=== PATIENT | male | born 1935 | race Caucasian/White ===

== ENCOUNTER 2024-03-23 08:11 | Inpatient (IN) ==
--- NOTE | 2024-02-18 11:35 | PAT Medication Instructions ---
Medication Instructions Date of Service February 18, 2024 Home Medications acetaminophen 500 mg tablet 500 mg PO QID PRN Pain amlodipine 2.5 mg tablet 2.5 mg PO QAM apixaban 5 mg tablet (Eliquis) 5 mg PO BID cholecalciferol (vitamin D3) 25 mcg (1,000 unit) chewable tablet (Vitamin D3) 25 mcg PO QAM furosemide 40 mg tablet 40 mg PO QAM ibuprofen 800 mg tablet 800 mg PO Q8H PRN Pain levothyroxine 25 mcg tablet 25 mcg PO QAM levothyroxine 50 mcg capsule 50 mcg PO INGRAM lisinopril 20 mg tablet 20 mg PO QAM metoprolol succinate 50 mg capsule sprinkle, ext. release 24 hr 50 mg PO QAM potassium chloride 10 mEq capsule,extended release 20 meq PO TID simvastatin 10 mg tablet 10 mg PO HS ASK your surgeon for instructions ibuprofen 800 mg tablet 800 mg PO Q8H PRN Pain ASK your prescriber and surgeon apixaban 5 mg tablet (Eliquis) 5 mg PO BID (From anesthesia perspective, Apixaban/Eliquis needs to be stopped 72 hours/3 days before surgery. Please check if okay with doctor that prescribes this to you) DO NOT take the morning of surgery cholecalciferol (vitamin D3) 25 mcg (1,000 unit) chewable tablet (Vitamin D3) 25 mcg PO QAM furosemide 40 mg tablet 40 mg PO QAM lisinopril 20 mg tablet 20 mg PO QAM potassium chloride 10 mEq capsule,extended release 20 meq PO TID Take morning of surgery With a small sip of water, OTHERWISE NOTHING TO EAT OR DRINK AFTER MIDNIGHT: acetaminophen 500 mg tablet 500 mg PO QID PRN Pain (if needed) amlodipine 2.5 mg tablet 2.5 mg PO QAM levothyroxine metoprolol succinate 50 mg capsule sprinkle, ext. release 24 hr 50 mg PO QAM Take evening before surgery acetaminophen 500 mg tablet 500 mg PO QID PRN Pain (if needed) potassium chloride 10 mEq capsule,extended release 20 meq PO TID simvastatin 10 mg tablet 10 mg PO HS Other Notes If you have any questions please call us at [phone] or [phone] or [phone] or [phone]
--- NOTE | 2024-02-23 09:29 | Anesthesiology Consultation ---
Date of Service February 23, 2024 Assessment & Plan (1) Encounter for pre-operative examination: - Infectious disease screening: Per assessment on 02/23/24: No known recent infectious disease contacts or current infectious disease symptoms. - Outpatient joint pathway: Initial OR booking comments noted plan for outpatient joint program. Patient seen at [facility] 02/23/24. Patient states he was told by surgeon's office he would be remaining in hospital for a few days after surgery post-operatively. Patient is not recommended candidate for outpatient joint pathway. Surgeon's office + OR made aware- booking comments updated. - Eliquis instructions: patient made aware that for neuraxial anesthesia, Eliquis needs to be held 72 hours/3 days prior to surgery. Patient voiced understanding/will check if okay with prescriber. - Preop CXR: Performed 02/23/24, notes cardiomegaly with coarsening of the interstitium which may be chronic or represent a component of pulmonary edema + possible small pleural effusions. Note written to cardiology regarding preop CXR > Awaiting cardiology response + upcoming cardiology office visit ([facility] [place] [facility], appt 03/10). Chart Review Chart Review: Patient seen in Pre Admission Testing Teaching & Discussion Pre-Anesthesia Teaching/Discussion Notes: Instructed NPO after midnight before surgery,except medications with 15 cc of water. Medication instructions provided according to the [facility] guidelines. History Surgery Operation Date: 03/23/24 07:00 Proposed Procedures p Left Total Knee Arthroplasty - Aditya Hubbard MD Height/Weight Height: 5 ft 9 in Weight: 116.9 kg Allergies Allergy/AdvReac Type Severity Reaction Status Date / Time No Known Allergies Allergy Verified 02/16/24 08:53 Medications Home Medications Medication Instructions Recorded Confirmed Last Taken acetaminophen 500 mg tablet 500 mg PO QID PRN Pain 02/16/24 02/16/24 Unknown amlodipine 2.5 mg tablet 2.5 mg PO QAM 02/16/24 02/16/24 Unknown apixaban 5 mg tablet (Eliquis) 5 mg PO BID 02/16/24 02/16/24 Unknown cholecalciferol (vitamin D3) 25 25 mcg PO QAM 02/16/24 02/16/24 Unknown mcg (1,000 unit) chewable tablet (Vitamin D3) furosemide 40 mg tablet 40 mg PO QAM 02/16/24 02/16/24 Unknown ibuprofen 800 mg tablet 800 mg PO Q8H PRN Pain 02/16/24 02/16/24 Unknown levothyroxine 25 mcg tablet 25 mcg PO QAM 02/16/24 02/16/24 Unknown levothyroxine 50 mcg capsule 50 mcg PO INGRAM 02/16/24 02/16/24 Unknown lisinopril 20 mg tablet 20 mg PO QAM 02/16/24 02/16/24 Unknown metoprolol succinate 50 mg capsule 50 mg PO QAM 02/16/24 02/16/24 Unknown sprinkle, ext. release 24 hr potassium chloride 10 mEq 20 meq PO TID 02/16/24 02/16/24 Unknown capsule,extended release simvastatin 10 mg tablet 10 mg PO HS 02/16/24 02/16/24 Unknown Past Medical History Medical History DJD (degenerative joint disease) Hard of hearing B/L hearing aids History of atrial flutter Taking Eliquis History of BPH History of diastolic dysfunction Per [facility] cardio records History of vertigo Episode 02/22/24- evaluated at [facility] ER, unremarkable neuro workup, rx Meclizine PRN HTN (hypertension) Hx of osteomyelitis Age 8, right leg- portion of bone removed Hyperlipidemia Hypothyroidism Paroxysmal atrial fibrillation Taking Eliquis Poor historian Exercise / Class Metabolic Activity III < 4 Walking/Shop/Light housework Past Surgical History Surgical History History of bilateral cataract extraction 05/2020 (per [facility] records- not noted by patient) History of prostate surgery TURP (per [facility] records) Hx of colonoscopy Past Anesthesia History No Hx of Anesthesia Complications and No Family Hx of Anesthesia Complications History of PONV No Hx of PONV and No Hx of Motion Sickness Social History Smoking Status: Never smoker Do You Dip or Chew Tobacco: No Hx Alcohol Use: No Hx Substance Use: No substance use type: does not use Review of Systems Patient denies chest pain, shortness of breath, dyspnea on exertion, fever, chills, cough, wheezing, palpitations. Physical Exam Vital Signs BP 134/75 P 84 TEMP 97.8 SP02 97%RA RESP 16 Physical Full cervical extension range of motion. Full TMJ range of motion. TMD 3.5 finger breaths Mallampati Score III Dentition: missing sides/molars Lungs: clear throughout to auscultation Cardiac: regular rate, irregularly irregular rhythm, no murmurs noted Spine: normal Carotid arteries: negative bruit Extremities: no LE edema Lab Results Anesthesia Preop Results Results Anesthesia Widget: PT 12.1 Seconds (9.0-12.0) H 02/23/24 PTT 28 Seconds (21-31) 02/23/24 INR 1.1 (0.9-1.1) 02/23/24 Blood Type A Positive 02/23/24 Antibody Screen NEGATIVE 02/23/24 Testing Laboratory Results 02/22/24 WBC 7.99 H/H 15.4/45. PLATELETS 189 SODIUM 140 POTASSIUM 4.1 CHLORIDE 105 CO2 25 BUN 15 CREATININE 0.8 GLUCOSE 140 02/05/24 HGBA1C 6.2% TSH 2.79 Electrocardiogram Date: 02/22/24 A. fib with PVCs or aberrantly conducted complexes at 86bpm. Possible inferior infarct, age undetermined. Chest X-Ray Date: 02/23/24 FINDINGS: Cardiac silhouette is enlarged. Pulmonary vascular congestion. Interstitial coarsening. Possible trace pleural effusions. No pneumothorax. Bibasilar atelectasis versus scarring. Degenerative changes of the shoulders and spine. IMPRESSION: Cardiomegaly with coarsening of the interstitium which may be chronic or represent a component of pulmonary edema. Possible small pleural effusions. Other Testing CT head/brain Date: 02/22/24 No acute intracranial pathology. Mild age-appropriate cerebral volume loss.
--- NOTE | 2024-03-19 09:18 | History & Physical Report ---
Date of Service March 19, 2024 Assessment & Plan (1) Right knee DJD: 88-year-old gentleman with moderate to advanced right knee DJD unresponsive conservative treatment. He does have a history of osteomyelitis of the fibula many years ago but no signs of recurrence. His labs are normal with no signs of an elevated sed rate or CRP. He is failed conservative measures and would like to have his right knee replaced. Plan: Aleja taken to the operating do right total knee replacement for the risks Mente this procedure explained and he understands. Certainly is at increased risk of infection but I think it is a low concerning the lab values and his asymptomatic state. It does not look like he is got any ongoing infection. Will likely put some additional vancomycin in the cement regardless. Will use Eliquis which he is already on for DVT prophylaxis. He will need to hold this 3 days preop. He is planned to be discharged to home or possibly rehab afterwards depending how things go with recovery. (2) HTN (hypertension): (3) History of BPH: (4) Hx of osteomyelitis: History of Present Illness Chief Complaint: . Persistent right knee pain and discomfort. Primary Care Provider: NO PCP . The patient is an 88-year-old gentleman from [place] who presents for surgical treatment of his right knee. Got a long history of right knee pain discomfort describes gotten worse over the past several years. He does have a history of osteomyelitis of the fibula when he was a child treated with resection. He has not had any problems with this over the past 70 years. He did have 1 recurrence long ago but prior to 7 years ago. He has been through extensive conservative treatment with his knee at [facility]. They said injections which become less successful over time. Is pretty miserable. He has to use a cane to get around. He is like to have his right knee replaced. Once again he has had no symptoms of recent or ongoing infection. Allergies Allergy/AdvReac Type Severity Reaction Status Date / Time No Known Allergies Allergy Verified 02/16/24 08:53 Home Medications Medication Instructions Recorded Confirmed Type acetaminophen 500 mg tablet 500 mg PO QID PRN Pain 02/16/24 02/16/24 History amlodipine 2.5 mg tablet 2.5 mg PO QAM 02/16/24 02/16/24 History apixaban 5 mg tablet (Eliquis) 5 mg PO BID 02/16/24 02/16/24 History cholecalciferol (vitamin D3) 25 25 mcg PO QAM 02/16/24 02/16/24 History mcg (1,000 unit) chewable tablet (Vitamin D3) furosemide 40 mg tablet 40 mg PO QAM 02/16/24 02/16/24 History ibuprofen 800 mg tablet 800 mg PO Q8H PRN Pain 02/16/24 02/16/24 History levothyroxine 25 mcg tablet 25 mcg PO QAM 02/16/24 02/16/24 History levothyroxine 50 mcg capsule 50 mcg PO INGRAM 02/16/24 02/16/24 History lisinopril 20 mg tablet 20 mg PO QAM 02/16/24 02/16/24 History metoprolol succinate 50 mg capsule 50 mg PO QAM 02/16/24 02/16/24 History sprinkle, ext. release 24 hr potassium chloride 10 mEq 20 meq PO TID 02/16/24 02/16/24 History capsule,extended release simvastatin 10 mg tablet 10 mg PO HS 02/16/24 02/16/24 History Past Med/Surg History Problem List Encounter for pre-operative examination Medical History Paroxysmal atrial fibrillation Taking Eliquis History of vertigo Episode 02/22/24- evaluated at [facility] ER, unremarkable neuro workup, rx Meclizine PRN History of diastolic dysfunction Per [facility] cardio records History of atrial flutter Taking Eliquis Hard of hearing B/L hearing aids Hyperlipidemia Hypothyroidism Poor historian HTN (hypertension) History of BPH DJD (degenerative joint disease) Hx of osteomyelitis Age 8, right leg- portion of bone removed Surgical History History of bilateral cataract extraction 05/2020 (per [facility] records- not noted by patient) History of prostate surgery TURP (per [facility] records) Hx of colonoscopy Social History Smoking Status: Never smoker Second Hand Exposure: No; Do You Dip or Chew Tobacco: No; Hx Alcohol Use: No Hx Substance Use: No Preferred Language: Chinese Communication Ability: Effective Communication Ability Comment: very hard of hearing Veterinary Surgery Technician Required: No Beliefs That Will Affect Care: None Current Living Situation: Spouse Feels Safe at Home: Yes Assistive Devices: Cane, Glasses, Hearing Aid - Bilateral, Walker and Wheelchair Review of Systems All systems reviewed & are unremarkable except as noted in HPI & below. Physical Exam . Physical examination was a pleasant elderly male. Looks in pretty good health. Examination of the right knee reveals patient ambulates with an assistance device. He limps on the right side. He wears a leather ankle brace for his ankle. Fairly neutral alignment to his knee. Small knee effusion. Range of motion is 5-1 20. Good straight leg raise. No particular pain with hip motion. He is neurologically intact. Constitutional WD/WN, vitals as above Neck trachea midline, no thyromegaly Respiratory normal respiratory effort, lungs clear to auscultation Cardiovascular RRR, no murmur, no edema Gastrointestinal (Abdomen) normal bowel sounds, soft, nontender, no hepatosplenomegaly Results & Data Results & Data Laboratory Results . Diagnostic Findings . X-rays of the right knee were reviewed. Shows moderate right knee DJD with joint space narrowing symmetrically. Got some chondrocalcinosis. Got advanced patellofemoral arthritis. It does show evidence of the previous fibular resection with some bony regrowth. He does have severe arthritis in his ankle. PG Care Time/CCT Total # of Minutes Spent Total Time Spent with Patient: Total time spent is greater than 50% in coordination of care (as documented) at patient's floor/unit and/or counseling patient: Coding Level of Care Code None Diagnoses Right knee DJD M17.11 HTN (hypertension) I10 History of BPH Z87.438 Hx of osteomyelitis Z87.39
[~2024-03-23 08:11] MED LIST: ROPIVACAINE 0.5% 5 MG/ML 30 ML VIAL ONE
--- OUTSIDE RECORDS SUMMARY | 2024-03-23 08:49 | External Medical Summary | Summary of Care ---
Author Name Unknown Organization [facility] Address [address] [facility] [place] [address] Phone [phone] Care Team Providers Care Information Engineer Name Role Phone Mike Nichols MD Primary Care Provider Encounter Details Date Type Department Care Team (Late st Contact Info) Description 03/19/2024 Population Health External Data Unspecified Department Allergies No known active allergiesdocumented as of this encounter (statuses as of 03/19/2024) Medications Medication Sig Dispensed Refills Start Date End Date Status acetaminophen (TYLENOL) 500 MG TabletIndications:V iral URI with cough 1-2 tabs up to 3 times a day For fever chills minor pains 100 Tab 08/05/2016 Active Lisinopril 20 MG Oral Tablet (Prinivil)Indicatio ns:HTN, goal below 130/80 TAKE ONE TABLET BY MOUTH EVERY DAY 90 Tablet 3 05/27/2023 Active Simvastatin 10 MG Oral Tablet (Zocor) TAKE ONE TABLET BY MOUTH AT BEDTIME 90 Tablet 3 07/22/2023 Active Levothyroxine Sodium 25 MCG Oral Tablet (Levoxyl)Indication s:Hypothyroidism due to acquired atrophy of thyroid TAKE 1 TABLET BY MOUTH DAILY EXCEPT TAKE 2 TABLETS ON FRIDAY AT LEAST 30 MINUTES PRIOR TO FIRST MEAL OF THE DAY OR OTHER MEDICATIONS. 105 Tablet 1 09/29/2023 Active Metoprolol Succinate ER 50 MG Oral Tablet Extended Release 24 Hour (toPROL XL) Take 1 Tablet by mouth in the morning. 90 Tablet 3 10/06/2023 Active Potassium Chloride ER 10 MEQ Oral Tablet Extended Release TAKE 2 TABLETS BY MOUTH 3 TIMES DAILY 180 Tablet 5 10/03/2023 Active Vitamin D3 50 MCG (2000 UT) Oral CapsuleIndications: Vitamin D deficiency Take 1 Capsule by mouth in the morning. 11/14/2023 Active Amoxicillin 500 MG Oral Capsule (Amoxil) TAKE 2 CAPSULES BY MOUTH NOW, THEN 1 CAPSULE EVERY 8 HOURS UNTIL GONE 30 Capsule 02/03/2024 Active amLODIPine Besylate 2.5 MG Oral Tablet (Norvasc) TAKE ONE TABLET BY MOUTH EVERY DAY 90 Tablet 3 02/06/2024 02/05/2025 Active Furosemide 40 MG Oral Tablet (Lasix) Take 1 Tablet by mouth in the morning. 90 Tablet 1 02/10/2024 Active Colchicine 0.6 MG Oral Tablet Take 1 Tablet by mouth in the morning. 02/10/2024 Active Aspirin 81 MG Oral Tablet Chewable (Aspirin Low Strength) Take 1 Tablet by mouth in the morning. Active Apixaban 5 MG Oral Tablet (Eliquis) TAKE ONE TABLET BY MOUTH IN THE MORNING AND BEFORE BEDTIME 180 Tablet 3 03/16/2024 03/16/2025 Active documented as of this encounter (statuses as of 03/19/2024) Active Problems Problem Noted Date Diagnosed Date Primary osteoarthritis of one knee, right 2023 Atrial flutter 07/30/2023 Last Assessment & Plan: Rate controlled on metoprolol Apixaban stroke prophylaxis Hypertensive heart disease without heart failure 11/13/2022 Pseudogout of joint of hand, right 09/20/2020 Pseudogout involving multiple joints 09/20/2020 Chronic pain of right knee 03/23/2020 Overview: Pseudogout Flare 03/2020 Chronic pain of right ankle 03/23/2020 Allergic contact dermatitis due to other agents 10/19/2018 Overview: 10/19/2018 L leg see office visit Diastolic dysfunction without heart failure 12/2017 History of pneumonia 08/28/2017 Overview: 08/2017 S/P TURP (status post transurethral resection of prostate) 07/31/2015 History of prostatitis 07/31/2015 Overview: Hearing impaired 04/20/2014 Overview: 04/20/2014 has hearing aids , wears one Hypothyroidism due to acquired atrophy of thyroi d 06/20/2010 Overview: TSH Results: Lab Results Component Value Date/Time TSH - [facility] 3.97 01/17/2021 07:11 AM TSH - [facility] 3.48 03/16/2020 07:01 AM TSH - [facility] 3.40 03/17/2019 07:12 AM TSH - [facility] 4.05 03/10/2018 07:28 AM TSH(uIU/mL) Arlet Dt/Tm Resulted Value Status 01/10/15 7:12A 01/10/15 2.98 FINAL 07/05/14 7:20A 07/05/14 3.54 FINAL 06/16/13 7:25A 06/16/13 2.06 FINAL 06/16/13 7:25A 06/16/13 2.06 FINAL 06/10/12 7:01A 06/10/12 3.29 FINAL 06/03/11 7:10A 06/03/11 4.08 FINAL 12/13/10 7:10A 12/13/10 4.78* start 25 mcg 06/13/10 7:10A 06/13/10 4.52* FINAL 11/30/08 7:22A 11/30/08 3.39 FINAL Actinic keratosis 03/15/2009 BPH with obstruction/lower urinary tract symptom s 08/13/2005 Overview: 09/03/2017 Urination OK. nocturia 0-1/n.depending on evening fluid intake. Stream is satisfactory 12/19/2009 doing well 10/20/2005 improved since surgery. Nocturia x 0. No urgency. No incontinence. No hesitancy. Feels his stream is stronger, but still has residual ~230mL S/p laser TUR 2005 Hydrocele 08/13/2005 Overview: 03/12/2016 03/23/2020 no symptoms Advance directive discussed with patient 005 Overview: 09/20/2020 Discussed Adv dir Encouraged again to bring POA and LW. Pt confirms 1 POA . passed of COVID 3 POA son Keo 03/19/2018 Will give 5 wishes brochure 03/12/2016 09/12/2016 03/19/2017 Encouraged again to bring POA and LW. 07/31/2015 given another one 01/16/2015 No LW Di adv dir 1 POA . 2 POA oldest son Reed Given brochure No, Advance Directive brochure given to patient at a previous visit. Diuretic-induced hypokalemia 06/27/2005 Overview: Potassium Results: POTASSIUM(mmol/L) Arlet Dt/Tm Resulted Value Status 12/13/10 7:10A 12/13/10 3.7 will increase to 2x10 tid (2x10 bid) 06/13/10 7:10A 06/13/10 4.0 FINAL 12/14/09 7:10A 12/14/09 3.9 FINAL 06/13/09 3.9 06/01/08 4.2 11/25/07 4.1 12/31/06: 4.0 07/03/2006 add Rosa 5 -pt will keep record of blood pressure and drop off in 4 wks when coming for BMP noted 2.8 at ER 06/26/05 will increase supplement Dyslipidemia, goal LDL below 100 02/16/2004 Overview: 06/04/2021 taking 10 mg of simvastatin Lab Results Component Value Date/Time LDL CHOLESTEROL (CALCULATED) - [facility] 102 01/17/2021 07:11 AM LDL CHOLESTEROL (CALCULATED) - [facility] 89 09/14/2019 07:43 AM LDL CHOLESTEROL (DIRECT MEASURE) - [facility] NOT APPLICABLE 09/14/2019 07:43 AM 08/19/2019 calling stating since starting atorvaSTATin, pt has been having bad leg pain at night. is asking if pt should be back on simvastatin. Will clarify if the other leg and other body muscles are hurting too, will explain not likely to be just one leg , but may hold atorva for a week and restart simva then and report symptoms . We may re-challenge him with atorva later. 03/22/2019 Will discontinue simvastatin and start atorvastatin 20 discussed common side effects 06/13/2005 continues Zocor 10mg / compliant LDL 11/26/04 =113 mild ldl ~140 06/29/2004 suboptimal LDL 148 accept statin start 07/15 Zocor 20mg=10mg Last Assessment & Plan: Continue simvastatin Due for updated labs HTN, goal below 150/90 08/01/2003 Overview: 12/31/06: 130's/80's 08/14/2006 home BP x 5 : 134-148/77-82 -> incr Rosa to 10qd 07/03/2006 add Rosa 5 -pt will keep record of blood pressure and drop off in 4 wks when coming for BMP 06/13/2005 well controlled 06/29/2004 will inc HCTZ to 25 Last Assessment & Plan: BP at goal. Continue metoprolol, lisinopril, amlodipine documented as of this encounter (statuses as of 03/19/2024) Resolved Problems Problem Noted Date Diagnosed Date Resolved Date Paroxysmal atrial fibrillation 11/22/2022 02/05/2024 Postural dizziness with presyncope 03/03/2022 03/05/2022 Class 2 severe obesity due t o excess calories with serious comorbidity and body mass index (BMI) of 37.0 to 37.9 in adult 10/12/2021 4 Wheezing 08/28/2017 09/03/2017 EKG abnormality 04/20/2014 09/15/2018 Overview: 05/12/2014 ECHO LVH diast dysf mild inc PA p 33 04/20/2014 Atypical cp ,resolved . Mild inf abn on EKG . Will do ECHO Rash and nonspecific skin eruption 12/08/2008 12/19/2009 Overview: 12/08/2008 sk ?scalp SCREENING FOR MALIGNANT NEOP LASM OF PROSTATE opts to d/c screening 12/02/2007 10/12/2021 Overview: 12/19/2009 Discussed recent recommendation for patients above 75 yo opts to d/c screening due to his age PSA Results: 12/14/09 0.76 11/30/08 0.90 11/25/07 0.76 07/02/07 1.86 01/15/06 0.70 Seen by uro Contusion of foot 01/23/2006 07/03/2006 Overview: 07/03/2006 virt resolved Other fall 01/23/2006 12/19/2009 Overview: LUMBOSACRAL SPINE - 01/27/06 no acute pathology. There are degenerative changes. Retention of urine 10/15/2005 0 Overview: Resolved p tur ICD-10 update of inactive term Incomplete bladder emptying 10/15/2005 12/19/2009 Overview: Resolved p TUR ABN FD-INTRATHOR ORG NEC R hilar prominence - 06/27/2012/19/2009 Overview: 12/19/2009 no sxs Jul 2005 chest X-ray doesn't reveal concerning findings. 08/23/2005 obtain repeat chest X-ray Pt to bring films of 06/26/05 for comparison , Asked for appropriate f/u re R hilar prominence 06/27/2005 ER chest X-ray : mild prom rt hilum poss due to pulm htn will comp to old films Screen for colon cancer 06/13/2005 040 07/2021 Overview: 08/12/2018 colonoscopy done-Diverticulosis in the sigmoid colon. Internal hemorrhoids.No specimens collected. No repeat colonoscopy due to age and the absence of advanced adenomas. 07/23/2018 pt called and cancelled his procedure because his brother - he was to call and re-schedule but has not done so yet. Kari (GI) will get in touch with the patient and attempt to get him scheduled again. 07/22/2018 I have noted he never did his colonoscopy (suggested for + cologuard ) 03/19/2018 Discussed cologuard , pt accepts 02/05/08 Colonoscopy done by found several diverticula were seen in the sig colon 12/02/2007 accepts colo with [facility] 12/31/06 - cards given again 06/13/2005 , 01/23/2006 DID NOT RETURN hX3 - ENC COLO BACKACHE NOS 04/27/2004 06/29/2004 Overview: see msg 04/27/2004 06/29/2004 resolved HYPERTROP PROSTATE W URIN RET 10/03/2003 12/31/2006 Overview: 08/13/2005 scheduled in [facility] [place] for surgery on 08/16/[address] chandler 07/13/[address] Dumont :added Avodart 0.5 mg to the Flomax. He will return in one month for another voiding trial. 06/27/2005 ER f/u back pain-urinary retention. LAst week noted more frequency . HAs a chronic problem but it was worse . discomfort in the lt flank was steady. Pt had noncont CT which suggested against stones but mild bilateral hydronephrosis . UA was negative . prostate appearance was c/w with marked BPH . Hamilton was placed 06/13/2005 sxs stable get PSa in 11/2005 PSA Results: 11/26/04 0.96 09/26/03 1.29 12/03/2004 ok no nocturia 02/16/2004 noct 0-1 by exam 10/03/2003 . stream OK noct 0-1 PSa OK documented as of this encounter (statuses as of 03/19/2024) Immunizations Name Administration Dates Next Due COVID-19 mRNA, LNP-s, No Pre serve, 2-Dose Series ([employer]) 11/25/2020,11/01/2020 Pneumococcal Conjugate Vacc, 13 Valent (Prevnar) 09/12/2016 Season Influenza, Quad, PF, Adjuvanted, 65+ Yrs, IM (FLUAD) 03/23/2020 Seasonal Influenza, PF, 6 M & above, IM , (FluLaval or Fluzone) 03/22/2019,03/19/2018,05/12/2017 Seasonal Influenza, Quadriva lent Hd (Fluzone Hd) 07/30/2023,04/25/2022,06/04/2021 Seasonal Influenza, Quadriva lent, No Preserve, IM 05/30/2016,07/31/2015 Seasonal Influenza, Trivalen t, (IIV3), with Preserv, (Fluzone) 04/20/2014,06/24/2013,07/13/2012,2010,04/19/2010,07/01/2007,07/03/2006 TDAP (age 10 and older)(Boostrix) 12/23/2012 Varicella Zoster Vaccine (Adult) 12/23/2012 documented as of this encounter Social History Tobacco Use Types Packs/Day Years Used Date Smoking Tobacco: Never Smokeless Tobacco: Never Alcohol Use Standard Drinks/Week Comments No 0 (1 standard drink = 0.6 oz pur e alcohol) PHQ-2 Answer Date Recorded PHQ Adult Total Score 0 02/05/2024 Hunger Vital Sign Answer Date Recorded Within the past 12 months, y ou worried that your food would run out before you got the money to buy more. Never true 02/10/20 24 Within the past 12 months, t he food you bought just didn't last and you didn't have money to get more. Never true 02/10/2024 Childcare Answer Date Recorded Do you feel overwhelmed with taking care of a child, family member or friend? No 02/10/2024 Does your family need help f inding childcare? (Household - for ages 0-17 years) Not on file 02/10/2024 Clothing Answer Date Recorded Have you been unable to get clothing when it was really needed? No 02/10/2024 Is your family able to get c lothes or diapers when needed? (Household - for ages 0-17 years) Not on file 02/10/2024 Personal Safety Answer Date Recorded Do you feel unsafe or have concerns for your saf ety? No 02/10/2024 Do you have concerns for you r family's safety? (Household - for ages 0-17 years) Not on file 02/10/2024 Utilities Answer Date Recorded Do you have trouble paying y our heating, water, or electric bill? No 02/10/2024 Is your family able to pay t he heat, water, or electric bill? (Household - for ages 0-17 years) Not on file 02/10/2024 Does your family have access to good internet? (Household - for ages 0-17 years) Not on file 02/10/2024 Employment Status Answer Date Recorded Are you unemployed or without regular income? No 02/10/2024 Does the household have a re gular source of income? (Household - for ages 0-17 years) Not on file 02/10/2024 Social Connections Answer Date Recorded How often do you feel lonely or isolated from th ose around you? Never 02/10/2024 Financial Resource Strain Answer Date R ecorded Do you have any trouble payi ng for your medications, or do you think you might in the future? No 02/10/2024 Does your family have troubl e paying for medicine? (Household - for ages 0-17 years) Not on file 02/10/2024 Transportation Needs Answer Date Record ed READ ONLY Do you have troubl e getting a ride to medical visits or work? Never True 02/10/2024 Does your family have a hard time getting a ride to doctors visits? (Household - for ages 0-17 years) Not on file 02/10/2024 Has lack of transportation k ept you from medical appointments, meetings, work, or from getting things needed for daily living? Check all that apply. No 02/10/2024 Do you (or your family) have trouble finding or paying for a ride (transportation)? (Household - for ages 0-17 years) Not on file 02/10/2024 Housing Stability Answer Date Recorded Do you currently live in a s helter or have no steady place to sleep at night? No 02/10/2024 READ ONLY Do you think you a re at risk of becoming homeless? No 02/10/2024 Does your family worry about paying for your home or becoming homeless? (Household - for ages 0-17 years) Not on file 0 02/10/2024 Are you homeless or worried that you might be in the future? No 02/10/2024 Are you (or your family) suzette eless or worried that you might be in the future? (Household - for ages 0-17 years) Not on file Food Insecurity Answer Date Recorded Do you need food for this week? No 02/10/2024 Are you able to get enough f ood for your family? (Household - for ages 0-17 years) Not on file 02/10/2024 Does your family need food t his week? (Household - for ages 0-17 years) Not on file 02/10/2024 Do you always have enough fo od for your family? (Household - for ages 0-17 years) Not on file 02/10/2024 Sex and Gender Information Value Date Recorded Sex Assigned at Male 10/19/2018 9:37 AM EDT Gender Identity Male 10/19/2018 9:37 AM EDT Sexual Orientation Straight 10/19/2018 9: 37 AM EDT Job Start Date Occupation Industry Not on file Not on file Not on file documented as of this encounter Functional Status Functional Status Response Date of Assess ment Are you deaf or do you have serious difficulty h earing? Yes 03/03/2022 Are you blind or do you have serious difficulty seeing, even when wearing glasses? Yes 03/03/2022 Do you have serious difficul ty walking or climbing stairs? (5 years old or older) Yes 03/03/2022 Do you have difficulty dress ing or bathing? (5 years old or older) No 03/03/2022 Because of a physical, menta l, or emotional condition, do you have difficulty doing errands alone such as visiting a doctor s office or shopping? (15 years old or older) No 03/03/20 Cognitive Status Response Date of Assessm ent Because of a physical, menta l, or emotional condition, do you have serious difficulty concentrating, remembering, or making decisions? (5 years old or older) No 03/03/2022 documented as of this encounter Plan of Treatment Upcoming Encounters Date Type Department Care Team (Late st Contact Info) Description 03/24/2024 9:00 AM EDT Scheduled Telephone [facility] at Home, [facility] [address] [place] [id number] Coordinator, [facility] [address] [place] [address] 04/15/2024 5:30 PM EDT Home Visit [facility] at Home, [facility] [address] [place] [address] Heather Gibbs, CLAUDIO [address] [place] [address] 09/06/2024 6:00 PM EST Office Visit Family Practice, [place] [address] [place] [phone] Mike Nichols MD [address] [facility] [place] [address] 02/23/2025 10:00 AM EDT Office Visit Cardiology, [place] [address] [place] [address] Morelia Garsia CRNP [address] [place] [address] Health Maintenance Due Date Last Done Comments Zoster Vaccines (2 of 3) 02/17/2013 12/23/2012 Adult Wellness Visit 09/20/2021 09/20/2020 DTap/Tdap Vaccines (2 - Td or Tdap) 12/23/2022 12/23/2012, 02/01/2004 COVID-19 Vaccine (3 - 2022- season) 2024 11/25/2020, 11/01/2020 Influenza Vaccine (FLU shot) (#1) 2024 07/30/2023, 04/25/2022, 06/04/2021, Additional history exists Albumin/Creatinine Ratio 10/12/2024 10/12/2021, 08/15 Depression Screening 02/04/2025 02/05/2024 TSH 02/04/2025 02/05/2024, 10/13, 11/18/2022, Additional history exists Pneumococcal Vaccine: 65+ Years Completed 09/12/2016, 06/27/2005 HPV (Gardasil) Vaccine Aged Out No lo nger eligible based on patient's age to complete this topic Hepatitis B Vaccine Aged Out No longe r eligible based on patient's age to complete this topic MENINGOCOCCAL (MENACTRA/MENVEO) Aged Out No longer eligible based on patient's age to complete this topic documented as of this encounter Medical Devices Implanted Type Area Stamp Machine Servicer Device Identifier Shelf Expiration Date Model / Serial / Lot Lens Intraoc 23.0 - [id number] - [id number] Implanted:Qty: 1 on 05/23/2020 by Glenn Falcon MD at OR [facility] Right: Eye [employer] 10/11/2024 [id number] / [id number] / [id number] Lens Intraoc 22.5 - [id number] - [id number] Implanted:Qty: 1 on 06/06/2020 by Glenn Falcon MD at OR [facility] Left: Eye [employer] 12/11/2024 [id number] / [id number] / [id number] documented as of this encounter Advance Directives Documents on File Type Date Recorded Patient Insurance Follow Up Specialist Expl anation POLST 11/18/2023 3:49 PM DNR * Full Code (Latest Code Status on File) Date Activated Date Inactivated Comments 03/03/2022 12:00 PM 03/05/2022 7:43 PM This order reflects the patients wishes and were consensually agreed upon. Question Answer Comments Discussion of Advance Directives occurred with: Patient/Family * Full Code Date Activated Date Inactivated Comments 08/27/2017 11:10 AM 08/28/2017 5:24 PM This order reflects the patients wishes and were consensually agreed upon. Question Answer Comments Discussion of Advance Directives occurred with: Patient/Family Does the patient have a Living Will? No Does the patient have Health Care Power of Staff Scientist? Yes, not currently available Care Teams Information Engineer Relationship Specialty Start Date End Date Mike Nichols MD [address] [place] [address] PCP - General Family Medicine 10/12/21 documented as of this encounter
--- OUTSIDE RECORDS SUMMARY | 2024-03-23 08:49 | External Medical Summary | Summary of Care ---
Author Name Unknown Organization [facility] Address [address] [facility] [place] [address] Phone [phone] Care Team Providers Care Explosive Man Name Role Phone Mike Nichols MD Primary Care Provider Encounter Details Date Type Department Care Team (Late st Contact Info) Description 03/22/2024 Population Health External Data Unspecified Department Allergies No known active allergiesdocumented as of this encounter (statuses as of 03/22/2024) Medications Medication Sig Dispensed Refills Start Date [...] as of this encounter (statuses as of 03/22/2024) Active Problems Problem Noted Date Diagnosed Date [...] as of this encounter (statuses as of 03/22/2024) Resolved Problems Problem Noted Date Diagnosed Date [...] RET 10/03/2003 12/31/2006 Overview: 08/13/2005 scheduled in [facility] [place] for surgery on 08/16/[address] chandler [...] as of this encounter (statuses as of 03/22/2024) Immunizations Name Administration Dates Next Due COVID-19 mRNA, LNP-s, No Pre serve, 2-Dose Series ([facility]) 11/25/2020,11/01/2020 Pneumococcal Conjugate Vacc, 13 Valent (Prevnar) [...] AM EDT Scheduled Telephone [facility] at [facility], [facility] [address] [id number] Coordinator, [facility] [address] [place] [address] [address] 04/15/2024 5:30 PM EDT Home Visit [facility] at Home, [facility] [address] [place] [address] Heather Gibbs, CLAUDIO [address] [place] [address] 09/06/2024 6:00 PM EST Office Visit Family Practice, [place] [address] [place] [place] [phone] Mike Nichols MD 21 [facility] [place] [address] 02/23/2025 10:00 AM EDT Office Visit Cardiology, [place] [address] [place] [address] Morelia Garsia CRNP [address] [facility] [place] [address] Health Maintenance Due Date Last Done Comments [...] this encounter Medical Devices Implanted Type Area Professor Of Literacy Device Identifier Shelf Expiration Date Model / Serial / Lot Lens Intraoc 23.0 - [id number] - [id number] Implanted:Qty: 1 on 05/23/2020 by Glenn Falcon MD at OR [facility] Right: Eye [employer] 10/11/2024 [id number] / [id number] / [id number] Lens Intraoc 22.5 - [id number] - [id number] Implanted:Qty: 1 on 06/06/2020 by Glenn Falcon MD at OR [facility] Left: Eye [employer] 12/11/2024 [id number] / [id number] / [id number] documented as of this encounter Advance Directives Documents on File Type Date Recorded Patient Cleaner Greaser Expl anation POLST 11/18/2023 3:49 PM DNR [...] the patient have Health Care Power of Account Executive Agribusiness? Yes, not currently available Care Teams Explosive Man Relationship Specialty Start Date End Date Mike Nichols MD [address] [place] [phone] PCP - General Family Medicine 10/12/21 documented as of this encounter
--- OUTSIDE RECORDS SUMMARY | 2024-03-23 08:49 | External Medical Summary | Summary of Care ---
Author Name Unknown Organization [facility] Address [address] [facility] [place] [address] Phone [phone] Care Team Providers Care Water Quality Control Engineer Name Role Phone Mike Nichols MD Primary Care Provider Encounter Details Date Type Department Care Team (Late st Contact Info) Description 03/17/2024 Population Health External Data Unspecified Department Allergies No known active allergiesdocumented as of this encounter (statuses as of 03/17/2024) Medications Medication Sig Dispensed Refills Start Date [...] 5 10/03/2023 Active Vitamin D3 50 MCG (1999 UT) Oral CapsuleIndications: Vitamin D deficiency Take [...] as of this encounter (statuses as of 03/17/2024) Active Problems Problem Noted Date Diagnosed Date [...] as of this encounter (statuses as of 03/17/2024) Resolved Problems Problem Noted Date Diagnosed Date [...] RET 10/03/2003 12/31/2006 Overview: 08/13/2005 scheduled in [facility] for surgery on 08/16/[address] [...] as of this encounter (statuses as of 03/17/2024) Immunizations Name Administration Dates Next Due COVID-19 mRNA, LNP-s, No Pre serve, 2-Dose Series ([employer]) 11/25/2020,11/01/2020 Pneumococcal Conjugate Vacc, 13 Valent (Prevnar) [...] AM EDT Scheduled Telephone [facility], [facility] [address] [place] [address] Coordinator, [facility] [address] [place] [address] 04/15/2024 5:30 PM EDT Home Visit [facility] at Home, [facility] [address] [place] [address] Heather Gibbs, CLAUDIO [address] [place] [address] 09/06/2024 6:00 PM EST Office Visit Family Practice, [place] [address] [place] [phone] Mike Nichols MD 21 [facility] [place] [address] 02/23/2025 10:00 AM EDT Office Visit Cardiology, [place] [address] [place] [address] Morelia Garsia CRNP 400 [place] [address] Health Maintenance Due Date Last Done Comments [...] this encounter Medical Devices Implanted Type Area Database Designer Device Identifier Shelf Expiration Date Model / Serial / Lot Lens Intraoc 23.0 - [id number] - [id number] Implanted:Qty: 1 on 05/23/2020 by Glenn Falcon MD at OR [facility] Right: Eye [employer]CH [employer] LOMB 10/11/2024 [id number] / [id number] Lens Intraoc 22.5 - [id number] - [id number] Implanted:Qty: 1 on 06/06/2020 by Glenn Falcon MD at OR [facility] Left: Eye BAUSCH & LOMB 12/11/2024 [id number] / [id number] / [id number] documented as of this encounter Advance Directives Documents on File Type Date Recorded Patient Quality Officer Expl anation POLST 11/18/2023 3:49 PM DNR [...] the patient have Health Care Power of Test Consultant? Yes, not currently available Care Teams Water Quality Control Engineer Relationship Specialty Start Date End Date Mike Nichols MD 21 [place] [address] PCP - General Family Medicine 10/12/21 documented as of this encounter
--- OUTSIDE RECORDS SUMMARY | 2024-03-23 08:49 | External Medical Summary | Summary of Care ---
Author Name Unknown Organization [facility] Address [address] [place] [facility] [place] [address] Phone [phone] Care Team Providers Care Creel Selector Name Role Phone Mike Nichols MD Primary Care Provider Reason for Visit * Reason Comments Medication Refill Encounter Details Date Type Department Care Team (Late st Contact Info) Description 03/14/2024 Refill Cardiology, [place] 400 [facility] [place] [address] Fermín Garsia CRNP 400 [place] [address] Allergies No known active allergiesdocumented as of this encounter (statuses as of 03/16/2024) Medications Medication Sig Dispensed Refills Start Date End Date Status acetaminophen (TYLENOL) 500 MG TabletIndications :Viral URI with cough 1-2 tabs up to 3 times a day For fever chills minor pains 100 Tab 08/05/2016 Active Lisinopril 20 MG Oral Tablet (Prinivil)Indicat ions:HTN, goal below 130/80 TAKE ONE TABLET BY MOUTH EVERY DAY 90 Tablet 3 05/27/2023 Active Simvastatin 10 MG Oral Tablet (Zocor) TAKE ONE TABLET BY MOUTH AT BEDTIME 90 Tablet 3 07/22/2023 Active Levothyroxine Sodium 25 MCG Oral Tablet (Levoxyl)Indicati ons:Hypothyroidis m due to acquired atrophy of thyroid TAKE [...] Vitamin D3 50 MCG (2000 UT) Oral CapsuleIndication s:Vitamin D deficiency Take 1 Capsule by mouth [...] BEDTIME 180 Tablet 3 03/16/2024 03/16/2025 Active Apixaban 5 MG Oral Tablet (Eliquis) TAKE ONE TABLET BY MOUTH IN THE MORNING AND BEFORE BEDTIME 180 Tablet 3 03/24/2023 03/14/2024 Discontinued (Refill) documented as of this encounter (statuses as of 03/16/2024) Active Problems Problem Noted Date Diagnosed Date [...] 01/17/2021 07:11 AM LDL CHOLESTEROL (CALCULATED) - [facility] 89 09/14/2019 07:43 AM LDL CHOLESTEROL (DIRECT MEASURE) - [facility] NOT APPLICABLE 09/14/2019 07:43 AM 08/19/2019 calling [...] as of this encounter (statuses as of 03/16/2024) Resolved Problems Problem Noted Date Diagnosed Date [...] old films Screen for colon cancer 06/13/2005 04/0 07/2021 Overview: 08/12/2018 colonoscopy done-Diverticulosis in the [...] RET 10/03/2003 12/31/2006 Overview: 08/13/2005 [place] [facility] for surgery on 08/16/[address] chandler [...] as of this encounter (statuses as of 03/16/2024) Immunizations Name Administration Dates Next Due COVID-19 mRNA, LNP-s, No Pre serve, 2-Dose Series ([employer]izer) 11/25/2020,11/01/2020 Pneumococcal Conjugate Vacc, 13 Valent (Prevnar) [...] No 02/10/2024 Does the household have a [facility] source [facility] income? (Household - for ages [...] No 03/03/2022 documented as of this encounter Miscellaneous Notes * Telephone Encounter - Fermín Garsia CRNP - 03/16/2024 3:07 PM EDTSigned Prescriptions: Disp Refills Apixaban 5 MG Oral Tablet (Eliquis) 180 Ta*3 Sig: TAKE ONE TABLET BY MOUTH IN THE MORNING AND BEFORE BEDTIME Authorizing Provider: FERMÍN GARSIA * Telephone Encounter - Amada Sahu LPN - 03/16/2024 10:59 AM EDTPending Prescriptions: Disp Refills Apixaban 5 MG Oral Tablet (Eliquis) 180 Ta*3 Sig: TAKE ONE TABLET BY MOUTH IN THE MORNING AND BEFORE BEDTIME * Telephone Encounter - Amada Sahu LPN - 03/16/2024 10:58 AM EDT Pending Prescriptions: Disp Refills Apixaban 5 MG Oral Tablet (Eliquis) 180 Ta*3 Sig: TAKE ONE TABLET BY MOUTH IN THE MORNING AND BEFORE BEDTIME documented in this encounter Plan of Treatment Upcoming Encounters Date Type Department Care Team (Late st Contact Info) Description 03/24/2024 9:00 AM EDT Scheduled Telephone [facility] [place], [address] [place] [address] Coordinator, [facility] [address] [place] [address] 04/15/2024 5:30 PM EDT Home Visit [facility], [facility] [address] [place] [address] Heather Gibbs, CLAUDIO [address] [place] [address] 09/06/2024 6:00 PM EST Office Visit [facility] [place] [facility] [place] [phone] Mike Nichols MD [address] [place] [address] 02/23/2025 10:00 AM EDT Office Visit Cardiology, [place] 400 [place] [address] Fermín [facility]arsia CRNP [facility] [address] Health Maintenance Due Date Last Done Comments [...] this encounter Medical Devices Implanted Type Area Atmospheric Physicist Device Identifier Shelf Expiration Date Model / Serial / Lot Lens Intraoc 23.0 - [id number] - [id number] Implanted:Qty: 1 on 05/23/2020 by Glenn Falcon MD at OR [facility] Right: Eye BAUSCH & LOMB 10/11/2024 [id number] / [id number] / [id number] Lens Intraoc 22.5 - [id number] - [id number] Implanted:Qty: 1 on 06/06/2020 by Glenn Falcon MD at OR [facility] Left: Eye BAUSCH & LOMB 12/11/2024 [id number] / [id number] / [id number] documented as of this encounter Advance Directives Documents on File Type Date Recorded Patient Injection Molder Expl diana POL 11/18/2023 3:49 PM DNR * Full Code [...] the patient have Health Care Power of Tie Cutter? Yes, not currently available Care Teams Creel Selector Relationship Specialty Start Date End Date Mike Nichols MD 21 [place] [phone] PCP - General Family Medicine 10/12/21 documented as of this encounter
--- OUTSIDE RECORDS SUMMARY | 2024-03-23 08:49 | External Medical Summary | Summary of Care ---
Author Name Unknown Organization [facility] Address [address] [facility] [place] [address] Phone [phone] Care Team Providers Care Taxation Agent Name Role Phone Eliot Nichols MD Primary Care Provider Reason for Visit * Reason Comments Medication Refill Encounter Details Date Type Department Care Team (Late st Contact Info) Description 03/22/2024 Refill [facility] [address] [facility] [place] [phone] Eliot Nichlos MD 21 [facility] [place] [phone] Hypothyroidism due to acquired atrophy of thyroid Allergies No known active allergiesdocumented as of [...] AT BEDTIME 90 Tablet 3 07/22/2023 Active Metoprolol Succinate ER 50 MG Oral [...] MOUTH EVERY DAY 90 Tablet 3 02/06/2024 02/06/20 25 Active Furosemide 40 MG Oral Tablet (Lasix) [...] AND BEFORE BEDTIME 180 Tablet 3 03/16/2024 03/16/20 25 Active Levothyroxine Sodium 25 MCG Oral Tablet (Levoxyl)Indication s:Hypothyroidism due to acquired atrophy of thyroid TAKE 1 TABLET BY MOUTH DAILY EXCEPT TAKE 2 TABLETS ON FRIDAY AT LEAST 30 MINUTES PRIOR TO FIRST MEAL OF THE DAY OR OTHER MEDICATIONS. 105 Tablet 1 03/22/2024 Active Acetaminophen Extra Strength 500 MG Oral Tablet 1000 mg (2 tablets) orally three times a day for pain for 30 days; Take 3 times per day to lessen pain. 180 Tablet 03/21/2024 Active Cefadroxil 500 MG Oral Capsule (Duricef) Take 500 mg (1 capsule) orally twice a day for 7 days to prevent infection 14 Capsule 03/21/2024 Active Ondansetron 4 MG Oral Tablet Disintegrating (Zofran) Take 4 mg (1 tablet) orally every 8 hours As Needed for nausea; Take as needed for nausea 20 Tablet 1 03/21/2024 Active oxyCODONE HCl 5 MG Oral Tablet (Oxy IR) Take 5 - 10 mg (1 - 2 tablets) orally every six hours As Needed for pain; Take as needed for pain 40 Tablet 03/21/2024 Active Sennosides 8.6 MG Oral Tablet (Senokot) Take 8.6 mg (1 tablet) orally twice a day for prevent constipation for 14 days; Take two times a day to prevent/treat constipation 28 Tablet 03/21/2024 Active Tamsulosin HCl 0.4 MG Oral Capsule (Flomax) Take 0.4 mg (1 capsule) orally daily; Begin night BEFORE surgery to prevent urinary retention 7 Capsule 03/21/2024 Active Levothyroxine Sodium 25 MCG Oral Tablet (Levoxyl)Indication s:Hypothyroidism due to acquired atrophy of thyroid TAKE 1 TABLET BY MOUTH DAILY EXCEPT TAKE 2 TABLETS ON FRIDAY AT LEAST 30 MINUTES PRIOR TO FIRST MEAL OF THE DAY OR OTHER MEDICATIONS. 105 Tablet 1 09/29/2023 03/22/20 24 Discontinu ed(Refill) documented as of this encounter (statuses as [...] still has residual ~230mL S/p laser TUR 2006 Hydrocele 08/13/2005 Overview: 03/12/2016 03/23/2020 no symptoms [...] Component Value Date/Time LDL CHOLESTEROL (CALCULATED) - [facility] 102 01/17/2021 07:11 AM LDL CHOLESTEROL (CALCULATED) - [facility] 89 09/14/2019 07:43 AM LDL CHOLESTEROL (DIRECT MEASURE) - [facility] NOT APPLICABLE 09/14/2019 07:43 AM 08/19/2019 calling [...] There are degenerative changes. Retention of urine 10/15/200512/19/ 0 Overview: Resolved p tur ICD-10 update of inactive term Incomplete bladder emptying 10/15/2005 12/19/2009 Overview: Resolved p TUR ABN FD-INTRATHOR ORG NEC R hilar prominence - 06/27/20 05 12/19/2009 Overview: 12/19/2009 no sxs Jul 2005 chest [...] RET 10/03/2003 12/31/2006 Overview: 08/13/2005 [place] [facility] [place] for surgery on 08/16/[address] chandler [...] mRNA, LNP-s, No Pre serve, 2-Dose Series ([employer]) 11/25/2020,11/01/2020 Pneumococcal Conjugate Vacc, 13 Valent [...] encounter Miscellaneous Notes * Telephone Encounter - Radha Magallon [facility] - 03/22/2024 7:19 PM EDTSigned Prescriptions: Disp Refills Levothyroxine Sodium 25 MCG Oral Tablet (L*105 Ta*1 Sig: TAKE 1 TABLET BY MOUTH DAILY EXCEPT TAKE 2 TABLETS ON FRIDAY AT LEAST 30 MINUTES PRIOR TO FIRST MEAL OF THEDAY OR OTHER MEDICATIONS.Authorizing Provider: ELIOT NICHOLS User: RADHA MAGALLON documented in this encounter Plan of Treatment Upcoming Encounters Date Type Department Care Team (Late st Contact Info) Description 03/24/2024 9:00 AM EDT Scheduled Telephone [facility], [facility] [address] [place] [address] Coordinator, [facility] [address] [place] [address] 04/15/2024 5:30 PM EDT Home Visit [facility], [facility] [address] [place] [address] Heather Gibbs RN 132 [facility] [place] [address] 09/06/2024 6:00 PM EST Office Visit Family Practice, [place] [address] [facility] [place] [phone] Eliot Nichols MD [facility] [place] [address] 02/23/2025 10:00 AM EDT Office Visit Cardiology, [place] [address] [place] [address] Morelia Garsia CRNP 400 [facility] [address] Health Maintenance Due Date Last Done Comments Zoster Vaccines (2 of 3) 02/17/2013 12/23/2012 Adult Wellness Visit 09/20/2021 09/20/2020 DTap/Tdap Vaccines (2 - Td or Tdap) 12/23/2022 12/23/2012, 02/01/2004 COVID-19 Vaccine (3 - 2022-24 season) 2024 11/25/2020, 11/01/2020 Influenza Vaccine (FLU [...] this encounter Medical Devices Implanted Type Area Health Navigator Device Identifier Shelf Expiration Date Model / Serial / Lot Lens Intraoc 23.0 - [id number] - [id number] Implanted:Qty: 1 on 05/23/2020 by Glenn Falcon MD at OR [facility] Right: Eye [employer]CH [employer] LOMB 10/11/2024 [id number] / [id number] / [id number] Lens Intraoc 22.5 - [id number] - [id number] Implanted:Qty: 1 on 06/06/2020 by Glenn Falcon MD at OR [facility] Left: Eye BAUSCH [employer] LOMB 12/11/2024 [id number] / [id number] / [id number] documented as of this encounter Visit Diagnoses Diagnosis Hypothyroidism due to acquired atrophy of thyroid documented in this encounter Advance Directives Documents on File Type Date Recorded Patient Rail Loader Expl anation POLST 11/18/2023 3:49 PM DNR [...] the patient have Health Care Power of Diesel Locomotive Engineer? Yes, not currently available Care Teams Taxation Agent Relationship Specialty Start Date End Date Eliot Nichols MD 21 [place] [phone] PCP - General Family Medicine 10/12/21 documented as of this encounter
--- OUTSIDE RECORDS SUMMARY | 2024-03-23 08:49 | External Medical Summary | Summary of Care ---
Author Name Unknown Organization [facility] Address [address] [facility] [place] [address] Phone [phone] Care Team Providers Care Mast Maker Name Role Phone Mike Nichols MD Primary Care Provider Encounter Details Date Type Department Care Team (Late st Contact Info) Description 03/16/2024 Population Health External Data Unspecified Department Allergies No known active allergiesdocumented as of this encounter (statuses as of 03/16/2024) Medications Medication Sig Dispensed Refills Start Date End Date Status acetaminophen (TYLENOL) 500 MG TabletIndications:V iral URI with cough 1-2 tabs up to 3 times a day For fever chills minor pains 100 Tab 08/05/2016 Active Apixaban 5 MG Oral Tablet (Eliquis) TAKE ONE TABLET BY MOUTH IN THE MORNING AND BEFORE BEDTIME 180 Tablet 3 03/24/2023 03/23/2024 Active Lisinopril 20 MG Oral Tablet (Prinivil)Indicatio [...] Tablet by mouth in the morning. Active documented as of this encounter (statuses [...] RET 10/03/2003 12/31/2006 Overview: 08/13/2005 scheduled in [facility] for surgery on 08/16/[address] chandler [...] mRNA, LNP-s, No Pre serve, 2-Dose Series ([employer]) 11/25/2020,11/01/2020 Pneumococcal Conjugate Vacc, 13 Valent (Prevnar) [...] AM EDT Scheduled Telephone [facility], [facility] [address] [place] [address] Coordinator, [facility] [address] [place] [address] 04/15/2024 5:30 PM EDT Home Visit [facility] at Home, [facility] [address] [place] [address] Heather Gibbs, CLAUDIO [address] [place] [address] 09/06/2024 6:00 PM EST Office Visit Family Practice, [place] [address] [place] [phone] Mike Nichols MD 21 [facility] [place] [address] 02/23/2025 10:00 AM EDT Office Visit Cardiology, [place] [address] [place] [address] Morelia Garsia CRNP 400 [place] [address] Health Maintenance Due Date Last Done Comments [...] this encounter Medical Devices Implanted Type Area [place] Cutter Device Identifier Shelf Expiration Date Model / Serial / Lot Lens Intraoc 23.0 - [id number] - [id number] Implanted:Qty: 1 on 05/23/2020 by Glenn Falcon MD at OR [facility] Right: Eye BAUSCH [employer] LOMB 10/11/2024 [id number] / [id number] / [id number] Lens Intraoc 22.5 - [id number] - [id number] Implanted:Qty: 1 on 06/06/2020 by Glenn Falcon MD at OR [facility] Left: Eye BAUSCH [employer] LOMB 12/11/2024 [id number] / [id number] / [id number] documented as of this encounter Advance Directives Documents on File Type Date Recorded Patient Methods Specialist Expl anation POLST 11/18/2023 3:49 PM [...] the patient have Health Care Power of Geographic Information Systems Manager? Yes, not currently available Care Teams Mast Maker Relationship Specialty Start Date End Date Mike Nichols MD [address] [place] [address] PCP - General Family Medicine 10/12/21 documented as of this encounter
--- OUTSIDE RECORDS SUMMARY | 2024-03-23 08:49 | External Medical Summary | Summary of Care ---
Author Name Unknown Organization [facility] Address [address] [facility] [place] [address] Phone [phone] Care Team Providers Care Production Technician Name Role Phone Mike Nichols MD Primary Care Provider Encounter Details Date Type Department Care Team (Late st Contact Info) Description 03/23/2024 Population Health External Data Unspecified Department Allergies No known active allergiesdocumented as of this encounter (statuses as of 03/23/2024) Medications Medication Sig Dispensed Refills Start Date End Date Status acetaminophen (TYLENOL) 500 MG TabletIndications:Vi ral URI with cough 1-2 tabs up to 3 times a day For fever chills minor pains 100 Tab 08/05/2016 Active Lisinopril 20 MG Oral Tablet (Prinivil)Indication s:HTN, goal below 130/80 TAKE ONE TABLET BY [...] 5 10/03/2023 Active Vitamin D3 50 MCG (1999) Oral CapsuleIndications:V itamin D deficiency Take 1 Capsule by mouth in the morning. 11/14/2023 Active Amoxicillin 500 MG Oral Capsule (Amoxil) TAKE 2 CAPSULES BY MOUTH NOW, THEN 1 CAPSULE EVERY 8 HOURS UNTIL GONE 30 Capsule 02/03/2024 Active amLODIPine Besylate 2.5 MG Oral Tablet (Norvasc) TAKE ONE TABLET BY MOUTH EVERY DAY 90 Tablet 3 02/06/2024 Active Furosemide 40 MG Oral Tablet (Lasix) [...] AND BEFORE BEDTIME 180 Tablet 3 03/16/2024 Active Levothyroxine Sodium 25 MCG Oral Tablet (Levoxyl)Indications :Hypothyroidism due to acquired atrophy of thyroid TAKE [...] prevent urinary retention 7 Capsule 03/21/2024 Active documented as of this encounter (statuses as of 03/23/2024) Active Problems Problem Noted Date Diagnosed Date [...] 01/17/2021 07:11 AM LDL CHOLESTEROL (CALCULATED) - e[facility]ALOS[facility] 89 09/14/2019 07:43 AM LDL CHOLESTEROL (DIRECT MEASURE) - [facility] NOT APPLICABLE 09/14/2019 07:43 AM 08/19/2019 calling [...] as of this encounter (statuses as of 03/23/2024) Resolved Problems Problem Noted Date Diagnosed Date [...] to old films Screen for colon cancer 06/13/200507/2021 Overview: 08/12/2018 colonoscopy done-Diverticulosis in the sigmoid [...] RET 10/03/2003 12/31/2006 Overview: 08/13/2005 scheduled in [facility] for surgery on 08/16/[address] chandler [...] as of this encounter (statuses as of 03/23/2024) Immunizations Name Administration Dates Next Due COVID-19 mRNA, LNP-s, No Pre serve, 2-Dose Series ([employer]) 11/25/2020,11/01/2020 Pneumococcal Conjugate Vacc, 13 Valent (Prevnar) [...] 02/10/2024 Does the household have a re lar source of income? (Household - for ages [...] Description 03/24/2024 9:00 AM EDT Scheduled Telephone [facility] [address] [place] [address] Coordinator, [facility] [address] [place] [address] 04/15/2024 5:30 PM EDT Home Visit [facility] at [facility] [address] [place] [address] Heather Gibbs, CLAUDIO [address] [place] [address] 09/06/2024 6:00 PM EST Office Visit Family Practice, [place] [address] [facility] [place] [phone] Mike Nichols MD [address] [address] 02/23/2025 10:00 AM EDT Office Visit Cardiology, [place] [address] [place] [address] Morelia Garsia CRNP [address] [place] [address] Health Maintenance Due Date Last Done Comments Zoster Vaccines (2 of 3) 02/17/2013 12/23/2012 Adult Wellness Visit 09/20/2021 09/20/2020 DTap/Tdap Vaccines (2 - Td or Tdap) 12/23/2022 12/23/2012, 02/01/2004 COVID-19 Vaccine (3 - season) 2024 11/25/2020, 11/01/2020 Influenza Vaccine (FLU [...] this encounter Medical Devices Implanted Type Area Instrumentation Technician Device Identifier Shelf Expiration Date Model / Serial / Lot Lens Intraoc 23.0 - [id number] - [id number] Implanted:Qty: 1 on 05/23/2020 by Glenn Falcon MD at OR [facility] Right: Eye [employer]CH [employer] LOMB 10/11/2024 [id number] / [id number] / [id number] Lens Intraoc 22.5 - [id number] - [id number] Implanted:Qty: 1 on 06/06/2020 by Glenn Falcon MD at OR [facility] Left: Eye BAUSCH & LOMB 12/11/2024 [id number] / [id number] / [id number] documented as of this encounter Advance Directives Documents on File Type Date Recorded Patient Cocktail Lounge Manager Juhi BROOKS 11/18/2023 3:49 PM DNR * Full Code [...] the patient have Health Care Power of Logistics Technician? Yes, not currently available Care Teams Production Technician Relationship Specialty Start Date End Date Mike Nichols MD 21 [place] [address] PCP - General Family Medicine 10/12/21 documented as of this encounter
--- OUTSIDE RECORDS SUMMARY | 2024-03-23 08:49 | External Medical Summary | Summary of Care ---
Author Name Unknown Organization [facility] Address [address] [facility] [place] [address] Phone [phone] Care Team Providers Care Bunch Maker Name Role Phone Mike Nichols MD Primary Care Provider Encounter Details Date Type Department Care Team (Late st Contact Info) Description 03/18/2024 Population Health External Data Unspecified Department Allergies No known active allergiesdocumented as of this encounter (statuses as of 03/18/2024) Medications Medication Sig Dispensed Refills Start Date [...] as of this encounter (statuses as of 03/18/2024) Active Problems Problem Noted Date Diagnosed Date [...] as of this encounter (statuses as of 03/18/2024) Resolved Problems Problem Noted Date Diagnosed Date [...] RET 10/03/2003 12/31/2006 Overview: 08/13/2005 scheduled in [facility] for surgery on 08/16/[address] chandler [...] as of this encounter (statuses as of 03/18/2024) Immunizations Name Administration Dates Next Due COVID-19 mRNA, LNP-s, No Pre serve, 2-Dose Series ([employer]) 11/25/2020,11/01/2020 Pneumococcal Conjugate Vacc, 13 Valent (Prevnar) [...] AM EDT Scheduled Telephone [facility], [facility] [address] [place] [address] Coordinator, [facility] [address] [place] [address] 04/15/2024 5:30 PM EDT Home Visit [facility], [facility] [address] [place] [address] Heather Gibbs, CLAUDIO [address] [place] [address] 09/06/2024 6:00 PM EST Office Visit Family Practice, [place] [address] [place] [phone] Mike Nichols MD 21 [facility] [place] [address] 02/23/2025 10:00 AM EDT Office Visit Cardiology, [place] [address] [place] [place] [address] Morelia Garsia CRNP 400 [place] [address] Health Maintenance Due Date Last Done Comments [...] this encounter Medical Devices Implanted Type Area Water Operator Device Identifier Shelf Expiration Date Model / Serial / Lot Lens Intraoc 23.0 - [id number] - [id number] Implanted:Qty: 1 on 05/23/2020 by Glenn Falcon MD at OR [facility] Right: Eye BAUSCH & LOMB 10/11/2024 [id number] / [id number] / [id number] Lens Intraoc 22.5 - [id number] - [id number] Implanted:Qty: 1 on 06/06/2020 by Glenn Falcon MD at OR [facility] Left: Eye BAUSCH & LOMB 12/11/2024 [id number] / [id number] / [id number] documented as of this encounter Advance Directives Documents on File Type Date Recorded Patient Cutting Machine Operator Helper Expl anation POLST 11/18/2023 3:49 PM DNR [...] the patient have Health Care Power of Frit Mixer And Burner? Yes, not currently available Care Teams Bunch Maker Relationship Specialty Start Date End Date Mike Nichols MD [address] [place] [address] PCP - General Family Medicine 10/12/21 documented as of this encounter
--- OUTSIDE RECORDS SUMMARY | 2024-03-23 08:50 | External Medical Summary | Summary of Care ---
Author Name Unknown Organization [facility] Address [address] [facility] [place] [address] Phone [phone] Care Team Providers Care Director Of Primary Name Role Phone Mike Nichols MD Primary Care Provider Encounter Details Date Type Department Care Team (Late st Contact Info) Description 03/08/2024 Population Health External Data Unspecified Department Allergies No known active allergiesdocumented as of this encounter (statuses as of 03/08/2024) Medications Medication Sig Dispensed Refills Start Date [...] 03/23/2024 Active Lisinopril 20 MG Oral Tablet (Prinivil)Indicat [...] Vitamin D3 50 MCG (1999 UT) Oral CapsuleIndication s:Vitamin D deficiency Take [...] by mouth in the morning. 02/10/2024 Active Meclizine HCl 25 MG Oral Tablet (Antivert) Take 1 Tablet by mouth 3 times a day as needed for Dizziness. 4 Tablet 02/22/2024 Active Additional Information Patient not taking.Reported on 03/01/2024 documented as of this encounter (statuses as of 03/08/2024) Active Problems Problem Noted Date Diagnosed Date [...] 01/17/2021 07:11 AM LDL CHOLESTEROL (CALCULATED) - MARTAER 89 09/14/2019 07:43 AM LDL CHOLESTEROL (DIRECT [...] as of this encounter (statuses as of 03/08/2024) Resolved Problems Problem Noted Date Diagnosed Date [...] RET 10/03/2003 12/31/2006 Overview: 08/13/2005 scheduled in [facility] for surgery on 08/16/[address] chandler [...] as of this encounter (statuses as of 03/08/2024) Immunizations Name Administration Dates Next Due COVID-19 mRNA, LNP-s, No Pre serve, 2-Dose Series ([employer]) 11/25/2020,11/01/2020 Pneumococcal Conjugate Vacc, 13 Valent (Prevnar) 09/12/2016 Season Influenza, Quad, PF, Adjuvanted, 65+ Yrs, IM (FLUAD) 03/23/2020 Seasonal Influenza, PF, 6 M & above, IM , (FluLaval or Fluzone) 03/22/2019,03/19/2018,05/12/2017 Seasonal Influenza, Quadriva lent Hd (Fluzone Hd) 07/30/2023,04/25/2022,06/04/2021 Seasonal Influenza, Quadriva lent, No Preserve, IM 05/30/2016,07/31/2015 Seasonal Influenza, Split, I IV3, With Preserve, Inj 04/20/2014,06/24/2013,07/13/2012,2010,04/19/2010,07/01/2007,07/03/2006 TDAP (age 10 and older)(Boostrix) 12/23/2012 [...] No 02/10/2024 Does the household have a [facility] center[facility] source of income? (Household - for ages [...] Care Team (Late st Contact Info) Description 03/10/2024 3:00 PM EDT Office Visit Cardiology, [place] [address] [place] [address] Morelia Garsia CRNP [address] [place] [address] 03/24/2024 9:00 AM EDT Scheduled Telephone [facility], [facility] [address] [place] [address] Coordinator, [facility] [address] [place] [address] 04/15/2024 5:30 PM EDT Home Visit [facility], [facility] [address] [place] [address] Heather Gibbs, CLAUDIO [address] [place] [address] 09/06/2024 6:00 PM EST Office Visit [facility] [address] [place] [phone] Mike Nichols MD [address] [facility] [place] [address] Health Maintenance Due Date Last Done Comments Zoster Vaccines (2 of 3) 02/17/2013 12/23/2012 Adult Wellness Visit 09/20/2021 09/20/2020 DTaP,Tdap,and Td Vaccines (2 - Td or Tdap) 12/23/2022 12/23/2012, 02/01/2004 COVID-19 Vaccine (3 - season) 2023 11/25/2020, 11/01/2020 Influenza Vaccine (FLU shot) (#1) [...] this encounter Medical Devices Implanted Type Area Manager Transmission Device Identifier Shelf Expiration Date Model / Serial / Lot Lens Intraoc 23.0 - [id number] - [id number] Implanted:Qty: 1 on 05/23/2020 by Glenn Falcon MD at OR [facility] Right: Eye BAUSCH & LOMB 10/11/2024 [id number] / [id number] / [id number] Lens Intraoc 22.5 - [id number] - [id number] Implanted:Qty: 1 on 06/06/2020 by Glenn Falcon MD at OR [facility] Left: Eye BAUSCH & LOMB 12/11/2024 [id number] / [id number] / [id number] documented as of this encounter Advance Directives Documents on File Type Date Recorded 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 Yes, not currently available Care Teams Director Of Primary Relationship Specialty Start Date End Date Mike Nichols MD [address] [place] [address] PCP - General Family Medicine 10/12/21 documented as of this encounter
--- OUTSIDE RECORDS SUMMARY | 2024-03-23 08:50 | External Medical Summary | Summary of Care ---
Author Name Unknown Organization [facility] Address [address] [facility] [place] [address] Phone [phone] Care Team Providers Care Sr. Vendor Management Associate Name Role Phone Mike Nichols MD Primary Care Provider Reason for Visit * Reason Onset Date Comments Advice 12/15/2023 appointment Encounter Details Date Type Department Care Team (Late st Contact Info) Description 12/[facility] 21 [facility] [place] [phone] Mike Nichols MD 21 [facility] [place] [phone] Advice (appointment) Allergies No known active allergiesdocumented as of this encounter (statuses as of 03/15/2024) Medications Medication Sig Dispensed Refills Start Date [...] by mouth in the morning. 11/14/2023 Active Colchicine 0.6 MG Oral Capsule Take 1 Cap by mouth daily for 5 days. 5 Cap 11/15/2020 02/10/2024 Discontinued (Medication List Clean Up) amLODIPine Besylate 2.5 MG Oral Tablet (Norvasc) TAKE ONE TABLET BY MOUTH EVERY DAY 90 Tablet 3 02/17/2023 02/06/2024 Discontinued (Refill) Furosemide 40 MG Oral Tablet (Lasix)Indication s:Hypertensive heart disease without heart failure,Leg swelling Take 1 Tablet by mouth in the morning. 90 Tablet 1 11/04/2023 02/10/2024 Discontinued (Refill) documented as of this encounter (statuses as of 03/15/2024) Active Problems Problem Noted Date Diagnosed Date [...] no symptoms Advance directive discussed with patient Overview: 09/20/2020 Discussed Adv dir Encouraged again [...] 01/17/2021 07:11 AM LDL CHOLESTEROL (CALCULATED) - JOSE J 89 09/14/2019 07:43 AM LDL CHOLESTEROL (DIRECT MEASURE) - MARCYSRIDHARINDY NOT APPLICABLE 09/14/2019 07:43 AM 08/19/2019 calling [...] as of this encounter (statuses as of 03/15/2024) Resolved Problems Problem Noted Date Diagnosed Date [...] RET 10/03/2003 12/31/2006 Overview: 08/13/2005 scheduled in [facility] for surgery on 08/16/05 with [...] as of this encounter (statuses as of 03/15/2024) Immunizations Name Administration Dates Next Due COVID-19 mRNA, LNP-s, No Pre serve, 2-Dose Series ([employer]) 11/25/2020,11/01/2020 Pneumococcal Conjugate Vacc, 13 Valent (Prevnar) [...] encounter Miscellaneous Notes * Telephone Encounter - Nicholas Fregoso OSA - 12/16/2023 2:12 PM EDT Appt scheduled * Telephone Encounter - Stephany Rizzo OSA - 12/15/2023 4:32 PM EDT Patient's 01/02/24 appointment was cancelled by the clinic and next available is February. Patient is requesting a sooner appointment for a 3 month return for an injection in right knee. Please contact patient at: [phone] documented in this encounter Plan of Treatment Upcoming Encounters Date Type Department Care Team (Late st Contact Info) Description 03/24/2024 9:00 AM EDT Scheduled Telephone [facility] [place], [facility] [address] [place] [address] Coordinator, [facility] [address] [place] [address] 04/15/2024 5:30 PM EDT Home Visit [facility] [place], [facility] [address] [place] [address] Heather Gibbs, CLAUDIO [address] [place] [address] 09/06/2024 6:00 PM EST Office Visit Family [facility] [place] [address] [place] [phone] Mike Nichols MD [address] [place] [place] [address] 02/23/2025 10:00 AM EDT Office Visit Cardiology, [place] [address] [place] [address] Morelia Garsia CRNP [address] [place] [address] Health Maintenance Due Date Last Done Comments [...] this encounter Medical Devices Implanted Type Area Scanning Tech Device Identifier Shelf Expiration Date Model / Serial / Lot Lens Intraoc 23.0 - [id number] - [id number] Implanted:Qty: 1 on 05/23/2020 by Glenn Falcon MD at OR [facility] Right: Eye BAUSCH & LOMB 10/11/2024 [id number] / [id number] / [id number] Lens Intraoc 22.5 - [id number] - [id number] Implanted:Qty: 1 on 06/06/2020 by Glenn Falcon MD at OR [facility] Left: Eye BAUSCH & LOMB 12/11/2024 [id number] / [id number] / [id number] documented as of this encounter Advance Directives Documents on File Type Date Recorded 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 Yes, not currently available Care Teams Sr. Vendor Management Associate Relationship Specialty Start Date End Date Mike Nihcols MD [address] [place] [address] PCP - General Family Medicine 10/12/21 documented as of this encounter
--- OUTSIDE RECORDS SUMMARY | 2024-03-23 08:50 | External Medical Summary | Summary of Care ---
Author Name Unknown Organization [facility] Address [address] [facility] [place] [address] Phone [phone] Care Team Providers Care Digital Media Analyst Name Role Phone Mike Ncihols MD Primary Care Provider Encounter Details Date Type Department Care Team (Late st Contact Info) Description 03/10/2024 Population Health External Data Unspecified Department Allergies No known active allergiesdocumented as of this encounter (statuses as of 03/10/2024) Medications Medication Sig Dispensed Refills Start Date [...] as of this encounter (statuses as of 03/10/2024) Active Problems Problem Noted Date Diagnosed Date [...] as of this encounter (statuses as of 03/10/2024) Resolved Problems Problem Noted Date Diagnosed Date [...] RET 10/03/2003 12/31/2006 Overview: 08/13/2005 scheduled in [facility] for surgery on 08/16/[address] chandler [...] as of this encounter (statuses as of 03/10/2024) Immunizations Name Administration Dates Next Due COVID-19 mRNA, LNP-s, No Pre serve, 2-Dose Series ([employer]) 11/25/2020,11/01/2020 Pneumococcal Conjugate Vacc, 13 Valent (Prevnar) [...] No 02/10/2024 Does the household have a [facility] source of income? (Household - for [...] [place] [address] Morelia Garsia CRNP [address] [place] [address] 03/24/2024 9:00 AM EDT Scheduled Telephone [facility], [facility] [place] [address] Coordinator, [facility] [address] [place] [address] 04/15/2024 5:30 PM EDT Home Visit [facility], [facility] [address] [place] [address] Heather Gibbs, CLAUDIO [address] [place] [address] 09/06/2024 6:00 PM EST Office Visit [facility] [address] [place] [phone] Mike Nichols MD [address] [place] [address] Health Maintenance Due Date Last Done Comments [...] this encounter Medical Devices Implanted Type Area Braider Tender Device Identifier Shelf Expiration Date Model / Serial / Lot Lens Intraoc 23.0 - [id number] - [id number] Implanted:Qty: 1 on 05/23/2020 by Glenn Falcon MD at OR [facility] Right: Eye BAUSCH & LOMB 10/11/2024 [id number] / [id number] / [id number] Lens Intraoc 22.5 - [id number] - [id number] Implanted:Qty: 1 on 06/06/2020 by Glenn Falcon MD at OR [facility] Left: Eye BAUSCH & LOMB 12/11/2024 [id number] / [id number] / [id number] documented as of this encounter Advance Directives Documents on File Type Date Recorded Patient Immunopathologist Expl anation POLST 11/18/2023 3:49 PM DNR [...] the patient have Health Care Power of Flag Maker? Yes, not currently available Care Teams Digital Media Analyst Relationship Specialty Start Date End Date Mike Nichols MD [address] [place] [address] PCP - General Family Medicine 10/12/21 documented as of this encounter
--- OUTSIDE RECORDS SUMMARY | 2024-03-23 08:50 | External Medical Summary | Summary of Care ---
Author Name Unknown Organization [facility] Address [address] [facility] [place] [address] Phone [phone] Care Team Providers Care Conditioning Yard Supervisor Name Role Phone Mike Nichols MD Primary Care Provider Encounter Details Date Type Department Care Team (Late st Contact Info) Description 03/11/2024 Population Health External Data Unspecified Department Allergies No known active allergiesdocumented as of this encounter (statuses as of 03/11/2024) Medications Medication Sig Dispensed Refills Start Date [...] as of this encounter (statuses as of 03/11/2024) Active Problems Problem Noted Date Diagnosed Date [...] as of this encounter (statuses as of 03/11/2024) Resolved Problems Problem Noted Date Diagnosed Date [...] RET 10/03/2003 12/31/2006 Overview: 08/13/2005 scheduled in [facility] on 08/16/05 with [...] as of this encounter (statuses as of 03/11/2024) Immunizations Name Administration Dates Next Due COVID-19 mRNA, LNP-s, No Pre serve, 2-Dose Series ([employer]) 11/25/2020,11/01/2020 Pneumococcal Conjugate Vacc, 13 Valent (Prevnar) [...] AM EDT Scheduled Telephone [facility], [facility] [address] [place] [address] [address] Coordinator, [facility] [address] [place] [address] 04/15/2024 5:30 PM EDT Home Visit [facility], [facility] [address] [place] [address] Heather Gibbs, CLAUDIO [address] [place] [address] 09/06/2024 6:00 PM EST Office Visit Family Practice, [place] 21 [facility] [place] [phone] Mike Nichols MD 21 [facility] [address] 02/23/2025 10:00 AM EDT Office Visit [facility]iology, [place] [address] [facility] [address] Morelia Garsia CRNP 400 [facility] [place] [address] Health Maintenance Due Date Last Done Comments [...] this encounter Medical Devices Implanted Type Area Tissue Coordinator Device Identifier Shelf Expiration Date Model / Serial / Lot Lens Intraoc 23.0 - [id number] - [id number] Implanted:Qty: 1 on 05/23/2020 by Glenn Falcon MD at OR [facility] Right: Eye BAUSCH & LOMB 10/11/2024 [id number] / [id number] / [id number] Lens Intraoc 22.5 - [id number] - [id number] Implanted:Qty: 1 on 06/06/2020 by Glenn Falcon MD at OR [facility] Left: Eye BAUSCH & LOMB 12/11/2024 [id number] / [id number] / [id number] documented as of this encounter Advance Directives Documents on File Type Date Recorded Patient Production Leader Expl anation POLST 11/18/2023 3:49 PM DNR [...] the patient have Health Care Power of Consumer Insight Manager? Yes, not currently available Care Teams Conditioning Yard Supervisor Relationship Specialty Start Date End Date Mike Nichols MD [address] [place] [address] PCP - General Family Medicine 10/12/21 documented as of this encounter
--- OUTSIDE RECORDS SUMMARY | 2024-03-23 08:50 | External Medical Summary | Summary of Care ---
Author Name Unknown Organization [facility] Address [address] [facility] [place] [address] Phone [phone] Care Team Providers Care Pool Finisher Name Role Phone Mike Nichols MD Primary Care Provider Reason for Visit * Reason Onset Date Comments [facility]: Maintenance 03/01/2024 Encounter Details Date Type Department Care Team (Late st Contact Info) Description 03/01/2024 Telephone [facility], [facility] [address] [place] [address] Heather Gibbs, CLAUDIO [address] [place] [address] [facility]: Maintenance Allergies No known active allergiesdocumented as of [...] as needed for Dizziness. 4 Tablet 02/22/2024 03/10/2024 Discontinued (Medication List Clean Up) documented as of this encounter (statuses as [...] RET 10/03/2003 12/31/2006 Overview: 08/13/2005 scheduled in [facility] for surgery on 08/16/[address] chandler [...] No 02/10/2024 Does the household have a [facility] source of income? (Household - for [...] encounter Miscellaneous Notes * Telephone Encounter - Rachel Velázquez OSA - 03/11/2024 12:13 PM EDT Email send to [facility] to d/c scale but keep bp cuff. I asked the send a box and label to patient. LOVELY Correa * Telephone Encounter - Heather Gibbs RN - 03/01/2024 4:57 PM EDT Please disenroll from [facility] scale monitoring-pt is not using scale and wishes to return. Pt is also enrolled in [facility] bp monitoring and wishes to continue with bp monitoring. Patient does not have a return box or label, pt may be contacted at home number listed in epic. Thanks documented in this encounter Plan of Treatment Upcoming Encounters Date Type Department Care Team (Late st Contact Info) Description 03/24/2024 9:00 AM EDT Scheduled [facility]phone [facility], [facility] [address] [address] [address] Coordinator, [facility] [address] [place] [address] 04/15/2024 5:30 PM EDT [facility] Visit [facility] [place], [facility] [address] [place] [address] Heather Gibbs RN [address] [place] [address] 09/06/2024 6:00 PM EST Office Visit [facility] [address] [place] [phone] Mike Nichols MD [address] [place] [address] 02/23/2025 10:00 AM EDT Office Visit Cardiology, [place] [address] [place] [address] Morelia Garsia CRNP [address] [place] [address] Health Maintenance Due Date Last Done Comments [...] this encounter Medical Devices Implanted Type Area Audiovisual Lead Technician Device Identifier Shelf Expiration Date Model / Serial / Lot Lens Intraoc 23.0 - [id number] - [id number] Implanted:Qty: 1 on 05/23/2020 by Glenn Falcon MD at OR [facility] Right: Eye BAUSCH & LOMB 10/11/2024 [id number] / [id number] / [id number] Lens Intraoc 22.5 - [id number] - [id number] Implanted:Qty: 1 on 06/06/2020 by Glenn Falcon MD at OR [facility] Left: Eye BAUSCH & LOMB 12/11/2024 [id number] / [id number] / [id number] documented as of this encounter Advance Directives Documents on File Type Date Recorded Patient Pool Finisher Expl anation POLST 11/18/2023 3:49 PM DNR [...] the patient have Health Care Power of Lieutenant Governor? Yes, not currently available Care Teams Pool Finisher Relationship Specialty Start Date End Date Mike Nichols MD [address] [place] [address] PCP - General Family Medicine 10/12/21 documented as of this encounter
--- OUTSIDE RECORDS SUMMARY | 2024-03-23 08:50 | External Medical Summary | Summary of Care ---
Author Name Unknown Organization [facility] Address [address] [place] [address] Phone [phone] Care Team Providers Care Adjunct Instructor Chemistry Name Role Phone Mike Nichols MD Primary Care Provider Reason for Visit * Reason Comments Follow Up Encounter Details Date Type Department Care Team (Late st Contact Info) Description 03/10/2024 3:00 PM EDT Office Visit Cardiology, [place] [address] [facility] [place] [address] Morelia Garsia CRNP [address] [place], [place] [id number] Permanent atrial fibrillation (HCC)*; Preoperative cardiovascular examination; HTN, goal below 130/80; Hyperlipidemia, unspecified hyperlipidemia type Allergies No known active allergiesdocumented as of [...] Tablet by mouth in the morning. Active Meclizine HCl 25 MG Oral Tablet [...] 07:43 AM LDL CHOLESTEROL (DIRECT MEASURE) - M[facility]ER NOT APPLICABLE 09/14/2019 07:43 AM 08/19/2019 calling [...] No 02/10/2024 Does the household have a [facility] source of income? (Household - for [...] on file documented as of this encounter Last Filed Vital Signs Vital Sign Reading Time Taken Comments Blood Pressure 132/82 03/10/2024 2:39 PM EDT Pulse 84 03/10/2024 2:39 PM EDT Temperature - - Respiratory Rate - - Oxygen Saturation - - Inhaled Oxygen Concentration - - Weight 117 kg (258 lb) 03/10/2024 2:39 PM EDT Height - - Body Mass Index 39.1 12/15/2023 9:57 AM EDT documented in this encounter Functional Status Functional Status Response [...] No 03/03/2022 documented as of this encounter Progress Notes * Morelia Garsia CRNP - 03/10/2024 2:40 PM EDT Subjective Marcellus Girard is a 88 year old male. Chief Complaint Patient presents with Follow Up Cardiac Problems: Atrial Flutter, [id number] 2 (age,HTN) HTN HLD Hx COVID 08/2022 Hypothyroidism HPI: 88 -year-old male presents today for routine cardiology follow up accompanied by . He was last evaluated in the clinic approximately 1 year ago. He has been feeling well since his last visit withno acute concerns today. Chronic gait disturbance due to arthritic discomfort, the his somewhat alleviated with injections into the knee joint every few months. Has continued to struggle with worsening knee pain and ambulatory dysfunction is planning to undergo knee surgery for further treatment next month at [facility]. Denies chest pain, SOB, palpitations, dizziness, syncope, orthopnea and PND. No change in activity tolerance. Right leg is chronically swollen given history of trauma, Unchanged from baseline Reports compliance with medications without any untoward side effects, or difficulty with affordability. PMH: Patient Active Problem List Diagnosis HTN, goal below 150/90 Dyslipidemia, goal LDL below 100 Diuretic-induced hypokalemia Advance directive discussed with patient BPH with obstruction/lower urinary tract symptoms Hydrocele Actinic keratosis Hypothyroidism due to acquired atrophy of thyroid Hearing impaired S/P TURP (status post transurethral resection of prostate) History of prostatitis History of pneumonia Diastolic dysfunction without heart failure Allergic contact dermatitis due to other agents Chronic pain of right knee Chronic pain of right ankle Pseudogout of joint of hand, right Pseudogout involving multiple joints Hypertensive heart disease without heart failure Atrial flutter (HCC) Primary osteoarthritis of one knee, right Current Outpatient Medications Medication Sig Dispense Refill Apixaban 5 MG Oral Tablet (Eliquis) TAKE ONE TABLET BY MOUTH IN THE MORNING AND BEFORE BEDTIME 180 Tablet 3 Lisinopril 20 MG Oral Tablet (Prinivil) TAKE ONE TABLET BY MOUTH EVERY DAY 90 Tablet 3 Simvastatin 10 MG Oral Tablet (Zocor) TAKE ONE TABLET BY MOUTH AT BEDTIME 90 Tablet 3 Levothyroxine Sodium 25 MCG Oral Tablet (Levoxyl) TAKE 1 TABLET BY MOUTH DAILY EXCEPT TAKE 2 TABLETS ON FRIDAY AT LEAST 30 MINUTES PRIOR TO FIRST MEAL OF THE DAY OR OTHER MEDICATIONS. 105 Tablet 1 Metoprolol Succinate ER 50 MG Oral Tablet Extended Release 24 Hour (toPROL XL) Take 1 Tablet by mouth in the morning. 90 Tablet 3 Potassium Chloride ER 10 MEQ Oral Tablet Extended Release TAKE 2 TABLETS BY MOUTH 3 TIMES DAILY 180Tablet 5 Vitamin D3 50 MCG (2000 UT) Oral Capsule Take 1 Capsule by mouth in the morning. amLODIPine Besylate 2.5 MG Oral Tablet (Norvasc) TAKE ONE TABLET BY MOUTH EVERY DAY 90 Tablet 3 Furosemide 40 MG Oral Tablet (Lasix) Take 1 Tablet by mouth in the morning. 90 Tablet 1 acetaminophen (TYLENOL) 500 MG Tablet 1-2 tabs up to 3 times a day For fever chills minor pains 100Tab 0 Amoxicillin 500 MG Oral Capsule (Amoxil) TAKE 2 CAPSULES BY MOUTH NOW, THEN 1 CAPSULE EVERY 8 HOURSUNTIL GONE 30 Capsule 0 Colchicine 0.6 MG Oral Tablet Take 1 Tablet by mouth in the morning. Meclizine HCl 25 MG Oral Tablet (Antivert) Take 1 Tablet by mouth 3 times a day as needed for Dizziness. (Patient not taking: Reported on 03/01/2024) 4 Tablet 0 No current facility-administered medications for this visit. Past Medical History: Diagnosis Date PADDY HYPERPLAS PROST W URIN RET s/p laser TUR 200508/13/2005 09/03/2017 Urination OK. nocturia 0-1/n.depending on evening fluid intake. Stream is satisfactory 12/19/2009 doing well 10/20/2005 improved since surgery. Nocturia x 0. No urgency. No incontinence. No hesitancy. Feels his stream is stronger, but still has residual ~230mL S/p laser TUR 2005 Cataract, senile OU Dyslipidemia, goal LDL below 130 02/16/2004 06/13/2005 continues Zocor 10mg / compliant LDL 11/26/04 =113 mild ldl ~140 06/29/2004 suboptimal LDL 148 accept statin start 07/15 Zocor 20mg=10mg EKG abnormality 04/20/2014 05/12/2014 ECHO LVH diast dysf mild inc PA p 33 04/20/2014 Atypical cp ,resolved . Mild inf abn on EKG . Will do ECHO HTN, goal below 140/90 HTN, goal below 150/90 08/01/2003 12/31/06: 130's/80's 08/14/2006 home BP x 5 : 134-148/77-82 -> incr Rosa to 10qd 07/03/2006 add Rosa 5 -pt will keep record of blood pressure and drop off in 4 wks when coming for BMP 06/13/2005 well controlled 06/29/2004 will inc HCTZ to 25 Hypothyroidism 06/20/2010 TSH Results: TSH(uIU/mL) Arlet Dt/Tm Resulted Value Status 01/10/15 7:12A 01/10/15 2.98 FINAL 07/05/14 7:20A 07/05/14 3.54 FINAL 06/16/13 7:25A 06/16/13 2.06 FINAL 06/16/13 7:25A 06/16/13 2.06 FINAL 06/10/12 7:01A 06/10/12 3.29 FINAL 06/03/11 7:10A 06/03/11 4.08 FINAL 12/13/10 7:10A 12/13/10 4.78* start 25 mcg 06/13/10 7:10A 06/13/10 4.52* FINAL 11/30/08 7:22A 11/30/08 3.[address] IN[address] brain 05/16 -neck pain severe Past Surgical History: Procedure Laterality Date COLONOSCOPY, DIAGNOSTIC (RECTUM) N/A 08/12/2018 diverticulosis sigmoid colon/internal hemorrhoids/no recalls/COLONOSCOPY FLEXIBLE PROXIMAL DIAGNOSTIC performed by Kavin Bell MD at ENDOSCOPY [facility] INFORMATION osteomylitis right leg with bone removal REMOVAL OF PROSTATE (TURP) 08/16/05 -Laser TURP REMOVE CATARACT, INSERT LENS PROSTH Right 05/23/2020 RIGHT EXTRACAPSULAR CATARACT REMOVAL WITH INTRAOCULAR LENS performed by Glenn Falcon MD at OR [facility] REMOVE CATARACT, INSERT LENS PROSTH Left 06/06/2020 LEFT EXTRACAPSULAR CATARACT REMOVAL WITH INTRAOCULAR LENS performed by Glenn Falcon MD at OR [facility] Review of patient's allergies indicates: No Known Allergies Family History Problem Relation Name Age of Onset Cancer Son lymphoma ?,cured ? Stroke Mother 91yo Neurological Disorder Father at 86yo dementia x4-5 yrs Other (no known skin diseases) Other pt denies fam hx of melanoma, skin ca or other skin diseases No Past Hx Other no FH of colon ca Cancer Sister throat cancer ? No Past Hx Brother (had anemia ) Family Status Relation Status Son Alive Son Alive Mo at age 91 Stroke Fa at age 86 Alz Dx pneumonia Other (Not Specified) Other (Not Specified) Sis Alive Bro Social History Socioeconomic History Marital status: Spouse name: Katy Number of children: 2 Years of education: Not on file Highest education level: Not on file Occupational History Occupation: retired [employer] Tobacco Use Smoking status: Never Smokeless tobacco: Never Vaping Use Vaping status: Never Used Substance and Sexual Activity Alcohol use: No Drug use: No Sexual activity: Never Other Topics Concern Not on file Social History Narrative [place] 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 Social Determinants of Health Financial Resource Strain: Low Risk (02/10/2024) Financial Resource Strain Do you have any trouble paying for your medications, or do you think you might in the future? (Adult - for ages 18 years and over): No Does your family have trouble paying for medicine? (Household - for ages 0-17 years): Not on file Food Insecurity: No Food Insecurity (02/10/2024) Food Insecurity Do you need food for this week? (Adult - for ages 18 years and over): No Are you able to get enough food for your family? (Household - for ages 0-17 years): Not on file Does your family need food this week? (Household - for ages 0-17 years): Not on file Do you always have enough food for your family? (Household - for ages 0-17 years): Not on file Transportation Needs: No Transportation Needs (02/10/2024) Transportation Needs Do you have trouble getting a ride to medical visits or work? (Adult - for ages 18 years and over):Never True Does your family have a hard time getting a ride to doctors visits? (Household - for ages 0-17 years): Not on file Has lack of transportation kept you from medical appointments, meetings, work, or from getting things needed for daily living? Check all that apply. (Adult - for ages 18 years and over): No Do you (or your family) have trouble finding or paying for a ride (transportation)? (Household - for ages 0-17 years): Not on file Social Connections: Socially Integrated (02/10/2024) Social Connections How often do you feel lonely or isolated from those around you? (Adult - for ages 18 years and over): Never Housing Stability: Low Risk (02/10/2024) Housing Stability Do you currently live in a usp or have no steady place to sleep at night? (Adult - for ages 18 years and over): No Do you think you are at risk of becoming homeless? (Adult - for ages 18 years and over): No Does your family worry about paying for your home or becoming homeless? (Household - for ages 0-17 years): Not on file Are you homeless or worried that you might be in the future? (Adult - for ages 18 years and over): No Are you (or your family) homeless or worried that you might be in the future? (Household - for ages0-17 years): Not on file Review of Systems Constitutional: Negative for activity change, fatigue and unexpected weight change. Eyes: Negative for visual disturbance. Respiratory: Negative for shortness of breath and wheezing. Cardiovascular: Negative for chest pain, palpitations and leg swelling. Gastrointestinal: Negative for blood in stool, constipation, diarrhea, nausea and vomiting. Genitourinary: Negative for hematuria. Musculoskeletal: Positive for gait problem. Negative for arthralgias. Skin: Negative for wound. Neurological: Negative for dizziness and syncope. Objective BP 132/82 | Pulse 84 | Wt 117 kg (258 lb) | BMI 39.10 kg/m | BSA 2.37 m Wt Readings from Last 3 Encounters: 03/10/24 117 kg (258 lb) 02/22/24 113.4 kg (250 lb) 02/05/24 115.8 kg (255 lb 6.4 oz) Physical Exam Vitals and nursing note reviewed. Constitutional: General: He is not in acute distress. Appearance: Normal appearance. He is well-developed. He is not ill-appearing. HENT: Head: Normocephalic and atraumatic. Eyes: General: No scleral icterus. Extraocular Movements: Extraocular movements intact. Conjunctiva/sclera: Conjunctivae normal. Pupils: Pupils are equal, round, and reactive to light. Neck: Thyroid: No thyromegaly. Vascular: No carotid bruit or JVD. Cardiovascular: Rate and Rhythm: Normal rate. Rhythm irregularly irregular. Pulses: Normal pulses. Carotid pulses are 2+ on the right side and 2+ on the left side. Radial pulses are 2+ on the right side and 2+ on the left side. Dorsalis pedis pulses are 2+ on the right side and 2+ on the left side. Posterior tibial pulses are 2+ on the right side and 2+ on the left side. Heart sounds: No murmur heard. Pulmonary: Effort: Pulmonary effort is normal. No respiratory distress. Breath sounds: Normal breath sounds. No wheezing, rhonchi or rales. Abdominal: General: Bowel sounds are normal. There is no distension. Palpations: Abdomen is soft. There is no mass. Tenderness: There is no abdominal tenderness. Musculoskeletal: General: No swelling. Cervical back: Neck supple. Right lower leg: Edema present. Left lower leg: No edema. Skin: General: Skin is warm and dry. Capillary Refill: Capillary refill takes less than 2 seconds. Findings: No rash or wound. Neurological: General: No focal deficit present. Mental Status: He is alert and oriented to person, place, and time. Psychiatric: Attention and Perception: Attention and perception normal. Behavior: Behavior is cooperative. Judgment: Judgment normal. Results Labs & Imaging Reviewed Below: ECG Today 02/22/24 A Fib 86 bpm QTc 406 ms 09/25/22 Afib 104 bpm 09/03/22 A Fib RVR 123 bpm 09/03/22 A Fib RVR 123 bpm 03/04/22 Atrial flutter with variable AV block 92 bpm QTc 358 ms 03/03/22 Atrial flutter with variable AV block 92 bpm QTc 358 ms 04/18/2020 NSR 65 bpm QTc 432 ms 08/27/2017 NSR w/PVCs 71 bpm QTc 449 ms 04/13/2014 NSR 62 bpm QTc 428 ms Echocardiograms 03/04/22 The qualitative LV ejection fraction is 55-59% (normal). Calculated LV ejection Fraction = 62% (bi-plane method of discs). The right ventricular systolic function is normal as assessed by tricuspid annular plane systolic excursion (TAPSE) (normal >1.7 cm). The right ventricular cavity is mildly dilated. The left atrium is moderately enlarged (42-48 ml/m^2). The right atrium is mildly enlarged. There is no right atrial mass. Mild mitral regurgitation is present. Mild tricuspid regurgitation is present. The proximal inferior vena cava is dilated. Indeterminate IVC size and collapsability. Right atrial pressure estimated at 8 mmHg. The estimated pulmonary artery systolic pressure is 40mm Hg. 05/09/2014 The LV wall thickness is mildly increased (concentric). The left ventricular wall motion is normal. The right ventricular systolic function is normal as assessed by tricuspid annular plane systolic excursion (TAPSE) (normal >1.5 cm). The left atrium is mildly enlarged (29-33 ml/m^2, Abdalla's biplane method of discs). Left ventricular hypertrophy suggests diastolic left ventricular dysfunction. Mild mitral regurgitation is present. Mild tricuspid regurgitation is present. The estimated pulmonary artery systolic pressure is 33mm Hg. Calculated LV ejection Fraction = 60% (bi-plane method of discs). Zio: 03/05/22 Final Interpretation 1. Predominant rhythm atrial fibrillation with an average ventricular rate of 87bpm; slowest ventricular rate was 54bpm at 2:45pm and the fastest was >200bpm at 8:59am. 2. Rare VPC; with one 7 beat run of a WCT. 3. No symptoms reported. LABS: Latest Reference Range & Units 02/05/24 10:19 02/22/24 09:18 Troponin T, High Sensitivity <=22 ng/L 23 (H) Sodium 135 - 146 mmol/L 142 140 Potassium 3.5 - 5.1 mmol/L 4.6 4.1 Chloride 98 - 107 mmol/L 105 105 CO2 22 - 32 mmol/L 26 25 BUN 6 - 20 mg/dL 15 15 Creatinine 0.6 - 1.2 mg/dL 1.0 0.8 Estimated Glomerular Filtration Rate >=60 mL/min 75 84 Anion Gap 7 - 15 mmol/L 11 10 Glucose 70 - 120 mg/dL 93 140 (H) Calcium 8.4 - 10.2 mg/dL 9.3 8.8 Protein 6.0 - 8.3 g/dL 6.0 Estimated Average Glucose <126 mg/dL 131 (H) Hemoglobin A1C 4.0 - 5.6 % 6.2 (H) TSH 0.27 - 4.20 uIU/mL 2.79 TSH WITH FREE T4 IF INDICATED Rpt CBC Rpt WBC 4.00 - 10.80 K/uL 7.99 RBC 4.50 - 5.25 M/uL 4.74 HGB 14.0 - 16.8 g/dL 15.4 HCT 40.0 - 48.4 % 45.3 MCV 82.0 - 99.5 fL 95.6 MCH 27.0 - 34.0 pg 32.5 MCHC 32.0 - 36.0 g/dL 34.0 RDW 11.5 - 15.5 % 13.4 PLT 140 - 400 K/uL 189 MPV 6.6 - 11.1 fL 9.5 CBC WITH WBC DIFFERENTIAL Rpt Absolute Neutrophils 1.80 - 7.70 K/uL 5.62 Absolute Lymphocytes 1.00 - 4.80 K/ul 1.66 Absolute Monocytes 0.00 - 1.10 K/uL 0.56 Absolute Eosinophils 0.00 - 0.70 K/uL 0.06 Absolute Basophils 0.00 - 0.20 K/uL 0.06 Albumin 3.8 - 5.0 g/dL 3.5 (L) AST 10 - 50 U/L 20 ALT 10 - 50 U/L 12 Alkaline Phosphatase 35 - 130 U/L 63 Bilirubin, Total <=1.2 mg/dL 0.8 Assessment/Plan: 1. Permanent A Fib/Atrial Flutter, [id number] 3 (age, HTN), AC on apixaban, rate control Toprol 2. HTN 3. HLD 4. Hypothyroidism 5. Hx COVID 08/2022 -HR and BP well controlled - he is euvolemic on exam -most recent ECG indicates AFib with adequate rate control -optimized from a cardiac standpoint for upcoming knee surgery, no additional testing is necessary -given his prior history he would be in moderate cardiac risk -reasonable to hold apixaban for 3 days prior to procedure as planned, no bridging is necessary -this should be resumed postoperatively at the discretion of the surgical team -they were curious about physical rehab after the surgery and I further encouraged them to discuss this with the surgical team -continue metoprolol, amlodipine, HCTZ, ASA, Simvastatin, lisinopril and apixaban -Educated patient on caution with change in positions to minimize symptomatic orthostatic hypotension -Discussed importance of diet & exercise with the patient. -Discussed with patient and subtle changes in how he is feeling or doing daily activities to contact us sooner; don't wait days or weeks. DISPOSITION: Follow up 1 year or if symptoms worsen/fail to improve. All questions were answered to the patients satisfaction. Patient advised to report to ED with any and all emergencies. The patient agrees to the above plan and will call with additional questions or concerns. [facility] [address] [address] This chart was completed in part utilizing [employer] Speech Voice Recognition Software. Grammatical errors, random word insertions, pronoun errors, and incomplete sentences are an occasional consequence of this system due to software limitations, ambient noise, and hardware issues. Any formal questions or concerns about the content, text, or information contained within the body of this dictation should be directly addressed to the provider for clarification. documented in this encounter Nursing Notes * Ramandeep Rowland LPN - 03/10/2024 2:36 PM EDT Patient was identified by name and date of . Name: Marcellus Girard Date of : (1935). Examination Room: 6 Reason for Visit: Chief Complaint Patient presents with Follow Up Interim Hospitalization(s): NO Interim Emergency room visit(s): YES [facility] 2 weeks ago dx vertigo Current symptoms: None Medications reviewed and are up to date via: Patient's memory Would you like to sign up for [facility]? DECLINES Patient was instructed to not get up on the exam table/exam chair until directed and assisted by their provider; patient is to remain seated in the chair/ wheelchair/ exam table/ exam chair for fall prevention and safety reasons. Patient is aware to have assistance to step down off exam table/exam chair with personnel. Patient voiced full comprehension of instructions. Ramandeep Rowland LPN 2:36 PM 03/10/2024 documented in this encounter Plan of Treatment Upcoming Encounters Date Type Department Care Team (Late st Contact Info) Description 03/24/2024 9:00 AM EDT Scheduled Telephone Jose J at [address], [facility] [address] [place] [address] Coordinator, [facility] [address] [place] [address] 04/15/2024 5:30 PM EDT Home Visit Jose J at [address], [facility] [address] [place] [address] Heather Gibbs, CLAUDIO [address] [place] [id number] 09/06/2024 6:00 PM EST Office Visit [facility], [place] [address] [phone] Mike Nichols MD [address] [id number] 02/23/2025 10:00 AM EDT Office Visit Cardiology, [place] [address] [address] Morelia Garsia CRNP [address] [place] [address] Health Maintenance Due Date Last Done Comments Zoster Vaccines (2 of 3) 02/17/2013 12/23/2012 Adult Wellness Visit 09/20/2021 09/20/2020 DTap/Tdap Vaccines (2 - Td or Tdap) 12/23/2022 12/23/2012, 02/01/2004 COVID-19 Vaccine (3 - 2022- season) 2023 11/25/2020, 11/01/2020 Influenza Vaccine (FLU [...] this encounter Medical Devices Implanted Type Area Radio Engineering Teacher Device Identifier Shelf Expiration Date Model / Serial / Lot Lens Intraoc 23.0 - [id number] - [id number] Implanted:Qty: 1 on 05/23/2020 by Glenn Falcon MD at OR [facility] Right: Eye [employer] 10/11/2024 [id number] / [id number] / [id number] Lens Intraoc 22.5 - [id number] - [id number] Implanted:Qty: 1 on 06/06/2020 by Glenn Falcon MD at OR [facility] Left: Eye [employer] 12/11/2024 [id number] / [id number] / [id number] documented as of this encounter Visit Diagnoses Diagnosis Permanent atrial fibrillation (HCC)- Primary Atrial fibrillation Preoperative cardiovascular examination Pre-operative cardiovascular examination HTN, goal below 130/80 Unspecified essential hypertension Hyperlipidemia, unspecified hyperlipidemia type documented in this encounter Advance Directives Documents on File Type Date Recorded Patient Policy Analyst Juhi BROOKS 11/18/2023 3:49 PM DNR * [...] the patient have Health Care Power of Honey Extractor? Yes, not currently available Care Teams Adjunct Instructor Chemistry Relationship Specialty Start Date End Date Mike Nichols MD [address] [address] PCP - General Family Medicine 10/12/21 documented as of this encounter"
--- OUTSIDE RECORDS SUMMARY | 2024-03-23 08:50 | External Medical Summary | Summary of Care ---
Author Name Unknown Organization [facility] Address [address] [facility] [place] [address] Phone [phone] Care Team Providers Care Facilities Specialist Name Role Phone Mike Nichols MD Primary Care Provider Encounter Details Date Type Department Care Team (Late st Contact Info) Description 03/09/2024 Population Health External Data Unspecified Department Allergies No known active allergiesdocumented as of this encounter (statuses as of 03/09/2024) Medications Medication Sig Dispensed Refills Start Date [...] as of this encounter (statuses as of 03/09/2024) Active Problems Problem Noted Date Diagnosed Date [...] as of this encounter (statuses as of 03/09/2024) Resolved Problems Problem Noted Date Diagnosed Date [...] RET 10/03/2003 12/31/2006 Overview: 08/13/2005 scheduled in [facility] for surgery on 08/16/[address] chandler [...] as of this encounter (statuses as of 03/09/2024) Immunizations Name Administration Dates Next Due COVID-19 mRNA, LNP-s, No Pre serve, 2-Dose Series ([employer]) 11/25/2020,11/01/2020 Pneumococcal Conjugate Vacc, 13 Valent (Prevnar) [...] No 02/10/2024 Does the household have a [facility] source [facility] income? (Household - for ages [...] [place] [address] Morelia Garsia CRNP [address] [place] [address] 03/24/2024 9:00 AM EDT Scheduled Telephone [facility], [facility] [address] [facility] [place] [address] Coordinator, [facility] [address] [place] [address] 04/15/2024 5:30 PM EDT Home Visit [facility], [facility] [address] [place] [address] Heather Gibbs, CLAUDIO [address] [place] [address] 09/06/2024 6:00 PM EST Office Visit [facility] [address] [place] [phone] Mike Nichols MD [address] [place] [address] Health Maintenance Due Date Last Done Comments [...] this encounter Medical Devices Implanted Type Area Explosive Technician Device Identifier Shelf Expiration Date Model / Serial / Lot Lens Intraoc 23.0 - [id number] - [id number] Implanted:Qty: 1 on 05/23/2020 by Glenn Falcon MD at OR [facility] Right: Eye [employer] LOMB 10/11/2024 [id number] / [id number] / [id number] Lens Intraoc 22.5 - [id number] - [id number] Implanted:Qty: 1 on 06/06/2020 by Glenn Falcon MD at OR [facility] Left: Eye BAUSCH [employer] LOMB 12/11/2024 [id number] / [id number] / [id number] documented as of this encounter Advance Directives Documents on File Type Date Recorded Patient Asset Management Analyst Expl anation POLST 11/18/2023 3:49 PM DNR [...] the patient have Health Care Power of Miniature Set Designer? Yes, not currently available Care Teams Facilities Specialist Relationship Specialty Start Date End Date Mike Nichols MD [address] [place] [address] PCP - General Family Medicine 10/12/21 documented as of this encounter
--- OUTSIDE RECORDS SUMMARY | 2024-03-23 08:50 | External Medical Summary | Summary of Care ---
Author Name Unknown Organization [facility] Address [address] [facility] [place] [address] Phone [phone] Care Team Providers Care Systems Admin Name Role Phone Mike Nichols MD Primary Care Provider Encounter Details Date Type Department Care Team (Late st Contact Info) Description 03/15/2024 Population Health External Data Unspecified Department Allergies [...] RET 10/03/2003 12/31/2006 Overview: 08/13/2005 scheduled in [facility] for surgery on 08/16/05 [...] mRNA, LNP-s, No Pre serve, 2-Dose Series ([employer]) 11/25/2020,11/01/2020 Pneumococcal Conjugate Vacc, 13 Valent (Prevnar) [...] AM EDT Scheduled Telephone [facility], [facility] [address] [place] [address] Coordinator, [facility] [address] [place] [address] 04/15/2024 5:30 PM EDT Home Visit [facility] at Home, [facility] [address] [place] [address] Heather Gibbs, CLAUDIO [address] [place] [address] 09/06/2024 6:00 PM EST Office Visit Family Practice, [place] [address] [place] [phone] Mike Nichols MD 21 [facility] [place] [address] 02/23/2025 10:00 AM EDT Office Visit Cardiology, [place] [address] [place] [address] Morelia Garsia CRNP 400 [place] [address] Health Maintenance Due Date Last Done Comments [...] this encounter Medical Devices Implanted Type Area Data Processing Equipment Repairer Device Identifier Shelf Expiration Date Model / Serial / Lot Lens Intraoc 23.0 - [id number] - [id number] Implanted:Qty: 1 on 05/23/2020 by Glenn Falcon MD at OR [facility] Right: Eye [employer] LOMB 10/11/2024 [id number] / [id number] / [id number] Lens Intraoc 22.5 - [id number] - [id number] Implanted:Qty: 1 on 06/06/2020 by Glenn Falcon MD at OR [facility] Left: Eye BAUSCH [employer] LOMB 12/11/2024 [id number] / [id number] / [id number] documented as of this encounter Advance Directives Documents on File Type Date Recorded Patient Haz Tech Expl anation POLST 11/18/2023 3:49 PM DNR [...] the patient have Health Care Power of Kindergarten Paraprofessional? Yes, not currently available Care Teams Systems Admin Relationship Specialty Start Date End Date Mike Nichols MD [address] [place] [address] PCP - General Family Medicine 10/12/21 documented as of this encounter
--- OUTSIDE RECORDS SUMMARY | 2024-03-23 08:50 | External Medical Summary | Summary of Care ---
Author Name Unknown Organization [facility] Address [address] [facility] [place] [address] Phone [phone] Care Team Providers Care Stitch Bonding Machine Tender Name Role Phone Mike Nichols MD Primary Care Provider Encounter Details Date Type Department Care Team (Late st Contact Info) Description 03/12/2024 Population Health External Data Unspecified Department Allergies No known active allergiesdocumented as of this encounter (statuses as of 03/12/2024) Medications Medication Sig Dispensed Refills Start Date [...] as of this encounter (statuses as of 03/12/2024) Active Problems Problem Noted Date Diagnosed Date [...] as of this encounter (statuses as of 03/12/2024) Resolved Problems Problem Noted Date Diagnosed Date [...] RET 10/03/2003 12/31/2006 Overview: 08/13/2005 scheduled in [facility] for surgery on 08/16/[address] chandler [...] as of this encounter (statuses as of 03/12/2024) Immunizations Name Administration Dates Next Due COVID-19 mRNA, LNP-s, No Pre serve, 2-Dose Series ([employer]) 11/25/2020,11/01/2020 Pneumococcal Conjugate Vacc, 13 Valent (Prevnar) [...] AM EDT Scheduled Telephone [facility], [facility] [address] [place] [address] Coordinator, [facility] [address] [place] [address] 04/15/2024 5:30 PM EDT Home Visit [facility] at Home, [facility] [address] [place] [address] Heather Gibbs, CLAUDIO [address] [place] [address] 09/06/2024 6:00 PM EST Office Visit Family Practice, [place] [address] [place] [phone] Mike Nichols MD 21 [facility] [place] [address] 02/23/2025 10:00 AM EDT Office Visit Cardiology, [place] [address] [place] [address] Morelia Garsia CRNP 400 [place] [address] Health Maintenance Due Date Last Done Comments [...] this encounter Medical Devices Implanted Type Area Wood Lather Device Identifier Shelf Expiration Date Model / Serial / Lot Lens Intraoc 23.0 - [id number] - [id number] Implanted:Qty: 1 on 05/23/2020 by Glenn Falcon MD at OR [facility] Right: Eye [employer]CH [employer] LOMB 10/11/2024 [id number] / [id number] / [id number] Lens Intraoc 22.5 - [id number] - [id number] Implanted:Qty: 1 on 06/06/2020 by Glenn Falcon MD at OR [facility] Left: Eye BAUSCH [employer] LOMB 12/11/2024 [id number] / [id number] / [id number] documented as of this encounter Advance Directives Documents on File Type Date Recorded Patient Operator Control Room Expl anation POLST 11/18/2023 3:49 PM DNR [...] the patient have Health Care Power of Director Of Events? Yes, not currently available Care Teams Stitch Bonding Machine Tender Relationship Specialty Start Date End Date Mike Nichols MD [address] [place] [address] PCP - General Family Medicine 10/12/21 documented as of this encounter
--- OUTSIDE RECORDS SUMMARY | 2024-03-23 08:50 | External Medical Summary | Summary of Care ---
Author Name Unknown Organization [facility] Address [address] [facility] [place] [address] Phone [phone] Care Team Providers Care Cost Estimating Engineer Name Role Phone Mike Nichols MD Primary Care Provider Encounter Details Date Type Department Care Team (Late st Contact Info) Description 03/05/2024 Population Health External Data Unspecified Department Allergies No known active allergiesdocumented as of this encounter (statuses as of 03/05/2024) Medications Medication Sig Dispensed Refills Start Date [...] as of this encounter (statuses as of 03/05/2024) Active Problems Problem Noted Date Diagnosed Date [...] as of this encounter (statuses as of 03/05/2024) Resolved Problems Problem Noted Date Diagnosed Date [...] RET 10/03/2003 12/31/2006 Overview: 08/13/2005 scheduled in [facility] for surgery on 08/16/[address] chandler [...] as of this encounter (statuses as of 03/05/2024) Immunizations Name Administration Dates Next Due COVID-19 mRNA, LNP-s, No Pre serve, 2-Dose Series ([employer]) 11/25/2020,11/01/2020 Pneumococcal Conjugate Vacc, 13 Valent (Prevnar) [...] No 02/10/2024 Does the household have a [facility] source of income? (Household - for ages [...] [place] [address] Morelia Garsia CRNP [address] [place] [address] 03/24/2024 9:00 AM EDT Scheduled Telephone [facility], [facility] [address] [place] [address] Coordinator, [facility] [address] [place] [address] 04/15/2024 5:30 PM EDT Home Visit [facility], [facility] [address] [place] [address] Heather Gibbs, CLAUDIO [address] [place] [address] 09/06/2024 6:00 PM EST Office Visit [facility] [address] [place] [phone] Mike Nichols MD [address] [place] [address] Health Maintenance Due Date Last Done Comments [...] this encounter Medical Devices Implanted Type Area Impregnation Operator Device Identifier Shelf Expiration Date Model / Serial / Lot Lens Intraoc 23.0 - [id number] - [id number] Implanted:Qty: 1 on 05/23/2020 by Glenn Falcon MD at OR [facility] Right: Eye BAUSCH [employer] LOMB 10/11/2024 [id number] / [id number] / [id number] Lens Intraoc 22.5 - [id number] - [id number] Implanted:Qty: 1 on 06/06/2020 by Glenn Falcon MD at OR [facility] Left: Eye BAUSCH [employer] LOMB 12/11/2024 [id number] / [id number] / [id number] documented as of this encounter Advance Directives Documents on File Type Date Recorded Patient Laborer/Key Man Expl anation POLST 11/18/2023 3:49 PM DNR [...] the patient have Health Care Power of Special Warfare Operator? Yes, not currently available Care Teams Cost Estimating Engineer Relationship Specialty Start Date End Date Mike Nichols MD [address] [place] [address] PCP - General Family Medicine 10/12/21 documented as of this encounter
--- OUTSIDE RECORDS SUMMARY | 2024-03-23 08:51 | External Medical Summary | Summary of Care ---
Author Name Unknown Organization [facility] Address [address] [facility] [place] [address] Phone [phone] Care Team Providers Care Tumor Registrar Name Role Phone Mike Nichols MD Primary Care Provider Encounter Details Date Type Department Care Team (Late st Contact Info) Description 03/01/2024 Population Health External Data Unspecified Department Allergies No known active allergiesdocumented as of this encounter (statuses as of 03/01/2024) Medications Medication Sig Dispensed Refills Start Date [...] needed for Dizziness. 4 Tablet 02/22/2024 Active documented as of this encounter (statuses as of 03/01/2024) Active Problems Problem Noted Date Diagnosed Date [...] 07:43 AM LDL CHOLESTEROL (DIRECT MEASURE) - JOSE J NOT APPLICABLE 09/14/2019 07:43 AM 08/19/2019 calling [...] as of this encounter (statuses as of 03/01/2024) Resolved Problems Problem Noted Date Diagnosed Date [...] RET 10/03/2003 12/31/2006 Overview: 08/13/2005 scheduled in [facility] for surgery on [...] as of this encounter (statuses as of 03/01/2024) Immunizations Name Administration Dates Next Due COVID-19 mRNA, LNP-s, No Pre serve, 2-Dose Series ([employer]) 11/25/2020,11/01/2020 Pneumococcal Conjugate Vacc, 13 Valent (Prevnar) [...] No 02/10/2024 Does the household have a [facility] source of income? (Household - for [...] Team (Late st Contact Info) Description 03/01/2024 2:30 PM EDT Home Visit [facility] [address] [place] [address] Heather Gibbs, RN [address] [place] [address] 03/04/2024 2:00 PM EDT Office Visit Orthopaedics, [address], [place] [address] [place] [address] [place] [address] Enoch Crabtree PA-C [address] [place] [address] 03/10/2024 3:00 PM EDT Office Visit Cardiology, [place] [address] [place] [address] Morelia Garsia, JULIETTE [address] [place] [address] 09/06/2024 6:00 PM EST Office Visit Family Practice, [place] [address] [place] [phone] Mike Nichols MD [address] [place] [address] Health Maintenance Due Date Last Done Comments [...] this encounter Medical Devices Implanted Type Area Semiconductor Packages Leak Tester Device Identifier Shelf Expiration Date Model / Serial / Lot Lens Intraoc 23.0 - [id number] - [id number] Implanted:Qty: 1 on 05/23/2020 by Glenn Falcon MD at OR [facility] Right: Eye BAUSCH [employer] LOMB 10/11/2024 [id number] / [id number] / [id number] Lens Intraoc 22.5 - [id number] - [id number] Implanted:Qty: 1 on 06/06/2020 by Glenn Falcon MD at OR [facility] Left: Eye BAUSCH & LOMB 12/11/2024 [id number] / [id number] / [id number] documented as of this encounter Advance Directives Documents on File Type Date Recorded Patient Conduit Worker Expl anation POLST 11/18/2023 3:49 PM DNR [...] the patient have Health Care Power of Face And Fill Packer? Yes, not currently available Care Teams Tumor Registrar Relationship Specialty Start Date End Date Mike Nichols MD [address] [place] [address] PCP - General Family Medicine 10/12/21 documented as of this encounter
--- OUTSIDE RECORDS SUMMARY | 2024-03-23 08:51 | External Medical Summary | Summary of Care ---
Author Name Unknown Organization [facility] Address [address] [facility] [place] [address] Phone [phone] Care Team Providers Care Binding Machine Operator Name Role Phone Mike Nichols MD Primary Care Provider Encounter Details Date Type Department Care Team (Late st Contact Info) Description 02/27/2024 Population Health External Data Unspecified Department Allergies No known active allergiesdocumented as of this encounter (statuses as of 02/27/2024) Medications Medication Sig Dispensed Refills Start Date [...] as of this encounter (statuses as of 02/27/2024) Active Problems Problem Noted Date Diagnosed Date [...] as of this encounter (statuses as of 02/27/2024) Resolved Problems Problem Noted Date Diagnosed Date [...] 10/03/2003 12/31/2006 Overview: 08/13/2005 scheduled in [facility] for surgery on 08/16/05 [...] as of this encounter (statuses as of 02/27/2024) Immunizations Name Administration Dates Next Due COVID-19 mRNA, LNP-s, No Pre serve, 2-Dose Series ([employer]) 11/25/2020,11/01/2020 Pneumococcal Conjugate Vacc, 13 Valent (Prevnar) [...] No 02/10/2024 Does the household have a [facility] source of income? (Household - for [...] Description 03/01/2024 2:30 PM EDT Home Visit [facility] at [facility] [address] [place] [address] Heather Gibbs, RN [address] [place] [address] 03/04/2024 2:00 PM EDT Office Visit Orthopaedics, [address], [place] [address] [place] [address] [place] [address] Enoch Crabtree PA-C [address] [place] [address] 03/10/2024 3:00 PM EDT Office Visit Cardiology, [place] [address] [place] [address] Morelia Garsia, JULIETTE [address] [place] [address] 09/06/2024 6:00 PM EST Office Visit Family Practice, [place] [address] [place] [phone] Mike Nichols MD [address] [place] [address] Health Maintenance Due Date Last Done Comments [...] this encounter Medical Devices Implanted Type Area Transportation Broker Device Identifier Shelf Expiration Date Model / Serial / Lot Lens Intraoc 23.0 - [id number] - [id number] Implanted:Qty: 1 on 05/23/2020 by Glenn Falcon MD at OR [facility] Right: Eye BAUSCH [employer] LOMB 10/11/2024 [id number] / [id number] / [id number] Lens Intraoc 22.5 - [id number] - [id number] Implanted:Qty: 1 on 06/06/2020 by Glenn Falcon MD at OR [facility] Left: Eye BAUSCH & LOMB 12/11/2024 [id number] / [id number] / [id number] documented as of this encounter Advance Directives Documents on File Type Date Recorded Patient Sash Assembler Expl anation POLST 11/18/2023 3:49 PM DNR [...] the patient have Health Care Power of Advertising Operations Coordinator? Yes, not currently available Care Teams Binding Machine Operator Relationship Specialty Start Date End Date Mike Nichols MD [address] [place] [address] PCP - General Family Medicine 10/12/21 documented as of this encounter
--- OUTSIDE RECORDS SUMMARY | 2024-03-23 08:51 | External Medical Summary | Summary of Care ---
Author Name Unknown Organization [facility] Address [address] [facility] [place] [address] Phone [phone] Care Team Providers Care Striper Name Role Phone Mike Nichols MD Primary Care Provider Reason for Visit * Reason Comments [facility]: Maintenance Encounter Details Date Type Department Care Team (Late st Contact Info) Description 03/01/2024 2:30 PM EDT [facility] [address] [place] [address] Heather Gibbs, CLAUDIO [address] [place] [address] Allergies No known active allergiesdocumented as of [...] RET 10/03/2003 12/31/2006 Overview: 08/13/2005 scheduled in [facility] [place] [place] for surgery on 08/16/[address] chandler [...] Pneumococcal Conjugate Vacc, 13 Valent (Prevnar) 09/12/2016 Pneumococcal Polysaccharide PPV23 (Pneumovax) 06/27/2005 Season Influenza, Quad, PF, Adjuvanted, 65+ Yrs, IM (FLUAD) 03/23/2020 Seasonal Influenza, PF, 6 M & above, IM , (FluLaval or Fluzone) 03/22/2019,03/19/2018,05/12/2017 Seasonal Influenza, Quadriva lent Hd (Fluzone Hd) 07/30/2023,04/25/2022,06/04/2021 Seasonal Influenza, Quadriva lent, No Preserve, IM 05/30/2016,07/31/2015 Seasonal Influenza, Split, I IV3, With Preserve, Inj 04/20/2014,06/24/2013,07/13/2012,06/13,04/19/2010,07/01/2007,07/03/2006 ,06/13/2005 TD - Tetanus/Diptheria (ADULT) 02/01/2004 TDAP (age 10 and older)(Boostrix) 12/23/2012 Varicella [...] No 02/10/2024 Does the household have a [facility] source of income? (Household - for ages [...] Sign Reading Time Taken Comments Blood Pressure 112/60 03/01/2024 2:50 PM EDT Pulse 78 03/01/2024 2:50 PM EDT Temperature 36.8 C (98.2 F) 03/01/2024 2:50 PM ED T Respiratory Rate 18 03/01/2024 2:50 PM EDT Oxygen Saturation 98% 03/01/2024 2:50 PM EDT Inhaled Oxygen Concentration - - Weight - - Height - - Body Mass Index - - documented in this encounter Functional Status Functional [...] as of this encounter Progress Notes * Heather Gibbs RN - 03/01/2024 2:48 PM EDT Images from the original note were not included. Jose J at Home Pail Tester Monthly Visit Date: 03/01/2024 Time: 2:48 PM Name: Marcellus Girard : 1935 SITUATION: Patient is being seen for [facility] RNCM routine visit. 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 Feeling well, denies recent illnesses, new problems or needs today. Atrial fib/diastolic dysfunction without heart failure ECHO LVEF 62% 03/04/23 On eliquis Denies chest pain, palpitations, increased sob Denies recent issues with bleeding Denies falls in the past year RLE +1 to +2 pitting edema above ankle brace to knee Continues to wear brace as ordered denies skin issues under brace 2 small lesions above brace--pt states he is treating 2 warts--no redness, warmth, discharge or pain. LLE +1 pitting edema up to knee Lung sounds clear on auscultation Pt has not been monitoring weight's daily, occasionally checks weight, states it is always the same. Does not wish to continue using [facility] scale-will return. Pt would like to continue to use [facility] bp cuff--not transmitting readings--reset modem and noted successful-[place] bp with [facility] cuff-significantly higher than RN manual ck. Chronic knee pain Pt evaluated by at [facility] 02/12/24, scheduled for knee replacement 03/23/24 Pt was told by ortho to anticipate 1-2 day inpt stay post op. Recommendations: Continue to take medications as ordered Keep schedule medical appt's Planned surgery scheduled 03/23 at [facility]-knee replacement [facility] nurse phone f/u scheduled 03/24 to monitor for d/c Fall precautions [facility] routine f/u visit in April Physical Exam: BP 112/60 (BP Site: Right Arm, BP Position: Sitting, BP Cuff Size: Regular) | Pulse 78 | Temp 36.8 C (98.2 F) (Infrared ) | Resp 18 | SpO2 98% Physical Exam Constitutional: General: He is not in acute distress. HENT: Head: Normocephalic and atraumatic. Nose: Nose normal. Mouth/Throat: Mouth: Mucous membranes are moist. Cardiovascular: Rate and Rhythm: Normal rate and regular rhythm. Heart sounds: Normal heart sounds. Pulmonary: Effort: Pulmonary effort is normal. No respiratory distress. Breath sounds: Normal breath sounds. No wheezing, rhonchi or rales. Musculoskeletal: Right lower leg: Edema (RLE +1 to +2 pitting edema above ankle brace to knee) present. Left lower leg: Edema (+1 pitting edema) present. Skin: General: Skin is warm and dry. Neurological: Mental Status: He is alert and oriented to person, place, and time. Problems/Symptoms: Review of Systems Constitutional: Negative for activity change, appetite change, chills, diaphoresis, fatigue and fever. HENT: Negative. Respiratory: Negative. Cardiovascular: Positive for leg swelling. Negative for chest pain and palpitations. Gastrointestinal: Negative. Genitourinary: Negative. Musculoskeletal: Positive for arthralgias and gait problem. Neurological: Positive for headaches. Negative for dizziness, weakness and light-headedness. Hematological: Negative. Psychiatric/Behavioral: Negative. Medication Reconciliation: (See medication list) Does patient take medications as ordered: Yes Patient Well Being: PHQ2/9: No questionnaires available. [facility]-10 Completed this Visit: Yes. [facility]: Reason Completed: Status post ED visit/hospital admission [facility]-10 Interventions: Fall education provided, reviewed/provided Fall brochure Advanced Care Planning: POLST. OOH DNR Patient's Goals of Care: Walk better Reinforcement/Education: . Reinforced safety education and fall prevention. and Reinforced medication regimen. Timing., Dosing., and Purspose. Home Interventions Provided: Educated on home safety: Create a fall proof home Clear floors of clutter, loose wires, throw rugs, and cords. Make sure halls, stairways, and entrances are well lit. Install a nightlight in your bedroom, hallway and bathroom. Install grab bars or handrails in the bathroom and on stairs. Use a non-skid tub/shower mat. Avoid climbing on a chair; instead use a step stool with a high handrail. Keep sidewalks and steps in good repair Keep steps and sidewalks free of snow and ice. Using aids to support and prevent falls If you have poor balance or have fallen in the past, consider additional support such as a cane or walker. Use a cane with good support and that is the proper length for you. Use a walker if a cane doesnt provide enough support. Avoid medications that increase the risk of falling by causing dizziness, change in sensation or slowed reflexes. Certain medicines may cause falls - blood pressure pills, heart medicines, water pills, or sleepingpills. Be sure to understand each medicine that you are taking and any side effects that may occur. Improve your balance and flexibility with muscle strengthening exercises. Ask your health care provider for some exercises that will be right for you. Reinforced current Plan of Care, including self-management and medication regimen Patient's 'Red Flags': Joint swelling, uncontrolled pain Increased weakness, falls Increased edema, sob Patient Needs to Remember: Call [facility] at with any new or worsening health concerns or problems, red flag symptoms. Referrals Needed: none Follow Up: Is there cellular connectivity/connectivity in the home? Yes Does the patient have internet in the home? No Patient encouraged to call the intake phone number for all urgent but not emergent issues. Is the patient new to [facility] within the last 30 days? No, Assess appropriateness for upcoming telehealth visits. Cancel telehealth visits & schedule home visit with care steam tender(s)as indicated. Provider is in agreement with Plan of Care: Yes Scheduled to follow up with patient in 4-5 weeks-following through admission in March. Heather Gibbs RN 03/01/2024 2:48 PM documented in this encounter Plan of Treatment Upcoming Encounters Date Type Department Care Team (Late st Contact Info) Description 03/10/2024 3:00 PM EDT Office Visit Cardiology, [place] [address] [place] [address] Morelia Garsia CRNP [address] [place] [address] 03/24/2024 9:00 AM EDT Scheduled Telephone [facility], [facility] [address] [address] Coordinator, [facility] [address] [place] [address] 04/15/2024 5:30 PM EDT Home Visit [facility], [facility] [address] [place] [address] Heather Gibbs, CLAUDIO [address] [place] [address] 09/06/2024 6:00 PM EST Office Visit Family [facility], [place] [address] [place] [phone] Mike Nihcols MD [address] [place] [address] Health Maintenance Due Date Last Done Comments [...] this encounter Medical Devices Implanted Type Area Retail Sales Professional Device Identifier Shelf Expiration Date Model / Serial / Lot Lens Intraoc 23.0 - [id number] - [id number] Implanted:Qty: 1 on 05/23/2020 by Glenn Falcon MD at OR [facility] Right: Eye [employer] 10/11/2024 [id number] / [id number] / [id number] Lens Intraoc 22.5 - [id number] - [id number] Implanted:Qty: 1 on 06/06/2020 by Glenn Falcon MD at OR [facility] Left: Eye [employer]OM[employer] 12/11/2024 [id number] / [id number] / [id number] documented as of this encounter Advance Directives Documents on File Type Date Recorded Patient Finish Mill Operator Expl anation POLST 11/18/2023 3:49 PM [...] the patient have Health Care Power of Molecular Spectroscopist? Yes, not currently available Care Teams Striper Relationship Specialty Start Date End Date Mike Nichols MD [address] [place] [address] PCP - General Family Medicine 10/12/21 documented as of this encounter"
--- OUTSIDE RECORDS SUMMARY | 2024-03-23 08:51 | External Medical Summary | Summary of Care ---
Author Name Unknown Organization [facility] Address [address] [facility] [place] [address] Phone [phone] Care Team Providers Care Acute Care Surgeon Name Role Phone Mike Nichols MD Primary Care Provider Encounter Details Date Type Department Care Team (Late st Contact Info) Description 03/03/2024 Population Health External Data Unspecified Department Allergies No known active allergiesdocumented as of this encounter (statuses as of 03/03/2024) Medications Medication Sig Dispensed Refills Start Date [...] as of this encounter (statuses as of 03/03/2024) Active Problems Problem Noted Date Diagnosed Date [...] as of this encounter (statuses as of 03/03/2024) Resolved Problems Problem Noted Date Diagnosed Date [...] RET 10/03/2003 12/31/2006 Overview: 08/13/2005 scheduled in [facility] [place] for surgery on [...] as of this encounter (statuses as of 03/03/2024) Immunizations Name Administration Dates Next Due COVID-19 mRNA, LNP-s, No Pre serve, 2-Dose Series ([employer]) 11/25/2020,11/01/2020 Pneumococcal Conjugate Vacc, 13 Valent (Prevnar) [...] 02/10/2024 Does the household have a [facility] source of [facility]? (Household - for ages [...] [place] [address] Morelia Garsia CRNP [address] [place] [address] 03/24/2024 9:00 AM EDT Scheduled Telephone [facility], [facility] [address] [place] [address] Coordinator, [facility] [address] [place] [address] 04/15/2024 5:30 PM EDT Home Visit [facility], [facility] [address] [place] [address] Heather Gibbs, CLAUDIO [address] [place] [address] 09/06/2024 6:00 PM EST Office Visit [facility] [address] [place] [phone] Mike Nichols MD [address] [place] [address] Health Maintenance Due Date Last Done Comments [...] this encounter Medical Devices Implanted Type Area Research Mechanic Device Identifier Shelf Expiration Date Model / Serial / Lot Lens Intraoc 23.0 - [id number] - [id number] Implanted:Qty: 1 on 05/23/2020 by Glenn Falcon MD at OR [facility] Right: Eye [employer] 10/11/2024 [id number] / [id number] / [id number] Lens Intraoc 22.5 - [id number] - [id number] Implanted:Qty: 1 on 06/06/2020 by Glenn Falcon MD at OR [facility] Left: Eye [employer] 12/11/2024 [id number] / [id number] / [id number] documented as of this encounter Advance Directives Documents on File Type Date Recorded Patient Principal Cyber Engineer Expl anation POLST 11/18/2023 3:49 PM DNR [...] the patient have Health Care Power of Assembly Member? Yes, not currently available Care Teams Acute Care Surgeon Relationship Specialty Start Date End Date Mike Nichols MD [address] [place] [address] PCP - General Family Medicine 10/12/21 documented as of this encounter
--- OUTSIDE RECORDS SUMMARY | 2024-03-23 08:51 | External Medical Summary | Summary of Care ---
Author Name Unknown Organization [facility] Address [address] [facility] [place] [address] Phone [phone] Care Team Providers Care Proposal Rep Name Role Phone Mike Nichols MD Primary Care Provider Encounter Details Date Type Department Care Team (Late st Contact Info) Description 02/25/2024 Population Health External Data Unspecified Department Allergies No known active allergiesdocumented as of this encounter (statuses as of 02/25/2024) Medications Medication Sig Dispensed Refills Start Date [...] as of this encounter (statuses as of 02/25/2024) Active Problems Problem Noted Date Diagnosed Date [...] as of this encounter (statuses as of 02/25/2024) Resolved Problems Problem Noted Date Diagnosed Date [...] RET 10/03/2003 12/31/2006 Overview: 08/13/2005 scheduled in [place] for surgery on 08/16/[address] chandler [...] as of this encounter (statuses as of 02/25/2024) Immunizations Name Administration Dates Next Due COVID-19 mRNA, LNP-s, No Pre serve, 2-Dose Series ([employer]) 11/25/2020,11/01/2020 Pneumococcal Conjugate Vacc, 13 Valent (Prevnar) [...] No 02/10/2024 Does the household have a [facility] source of income? (Household - [...] Description 03/01/2024 2:30 PM EDT Home Visit [facility] [address] [place] [address] Heather Gibbs, RN [address] [place] [address] 03/04/2024 2:00 PM EDT Office Visit Orthopaedics, [address], [place] [address] [place] [address] [place] [address] Enoch Crabtree PA-C [address] [place] [address] 03/10/2024 3:00 PM EDT Office Visit Cardiology, [place] [address] [place] [address] Morelia Garsia, JULIETTE [address] [place] [address] 09/06/2024 6:00 PM EST Office Visit Family Practice, [place] [address] [place] [phone] Mike Nichols MD [address] [place] [address] Health Maintenance Due Date Last Done Comments [...] this encounter Medical Devices Implanted Type Area Stone Paver Device Identifier Shelf Expiration Date Model / Serial / Lot Lens Intraoc 23.0 - [id number] - [id number] Implanted:Qty: 1 on 05/23/2020 by Glenn Falcon MD at OR [facility] Right: Eye [employer]OM[employer] 10/11/2024 [id number] / [id number] / [id number] Lens Intraoc 22.5 - [id number] - [id number] Implanted:Qty: 1 on 06/06/2020 by Glenn Falcon MD at OR [facility] Left: Eye [employer]OM[employer] 12/11/2024 [id number] / [id number] / [id number] documented as of this encounter Advance Directives Documents on File Type Date Recorded Patient Flyer Repairer Expl anation POLST 11/18/2023 3:49 PM DNR [...] the patient have Health Care Power of Recovery Auditor? Yes, not currently available Care Teams Proposal Rep Relationship Specialty Start Date End Date Mike Nichols MD [address] [place] [address] PCP - General Family Medicine 10/12/21 documented as of this encounter
--- OUTSIDE RECORDS SUMMARY | 2024-03-23 08:51 | External Medical Summary | Summary of Care ---
Author Name Unknown Organization [facility] Address [address] [facility] [place] [address] Phone [phone] Care Team Providers Care Justice Court Judge Name Role Phone Mike Nichols MD Primary Care Provider Reason for Visit * Reason Comments [facility]: Maintenance Encounter Details Date Type Department Care Team (Late st Contact Info) Description 03/01/2024 2:30 PM EDT [facility] Visit [facility], [facility] [address] [place] [address] Heather Gibbs, CLAUDIO [address] [place] [address] Allergies No known active allergiesdocumented as of [...] RET 10/03/2003 12/31/2006 Overview: 08/13/2005 [place] [facility] [place] surgery on 08/16/[address] chandler [...] No 02/10/2024 Does the household have a [facility] source of income? (Household - for [...] were not included. Jose J at Home Change Control Specialist Monthly Visit Date: 03/01/2024 Time: 2:48 PM Name: Marcellus Girard : 1935 SITUATION: Patient is being seen for [facility] RNCM routine visit. BACKGROUND: Paroxysmal atrial fibrillation on Eliquis, HTN, BPH with h/o obstruction s/p TURP, pseudogout, diastolic dysfunction without heart failure, chronic R/knee/ankle pain [facility] ER 06/10/23-back pain Last Hospitalization 03/05/22 Lives [...] Chronic knee pain Pt evaluated by at [facility] 02/12/24, scheduled for knee replacement 03/23/24 Pt was told by ortho to anticipate 1-2 day inpt stay post op. Recommendations: Continue to take medications as ordered Keep schedule medical appt's Planned surgery scheduled 03/23 at [facility]-knee replacement [facility] nurse phone f/u scheduled 03/24 to monitor for d/c Fall precautions [facility] routine f/u visit in April Physical Exam: [...] Patient Well Being: PHQ2/9: No questionnaires available. [facility]-10 Completed this Visit: Yes. [facility]: Reason Completed: Status post ED visit/hospital admission [facility]-10 Interventions: Fall education provided, reviewed/provided Fall [...] edema, sob Patient Needs to Remember: Call [facility] at with any new or worsening health [...] visits & schedule home visit with care production team manager(s)as indicated. Provider is in agreement with Plan of Care: Yes Scheduled to follow up with patient in 4-5 weeks-following through admission in March. Heather Gibbs RN 03/01/2024 2:48 PM documented in this encounter Plan of Treatment Upcoming Encounters Date Type Department Care Team (Late st Contact Info) Description 03/10/2024 3:00 PM EDT Office Visit Cardiology, [place] [address] [place] [address] Morelia Garsia CRNP [address] [place] [address] 03/24/2024 9:00 AM EDT Scheduled Telephone [facility], [facility] [address] [address] Coordinator, [facility] [address] [place] [address] 04/15/2024 5:30 PM EDT Home Visit [facility], [facility] [address] [place] [address] Heather Gibbs, CLAUDIO [address] [place] [address] 09/06/2024 6:00 PM EST Office Visit Family [facility], [place] [address] [place] [phone] Mike Nichols MD [address] [place] [address] Health Maintenance Due Date Last Done Comments [...] this encounter Medical Devices Implanted Type Area Electric Meter Inspector Device Identifier Shelf Expiration Date Model / Serial / Lot Lens Intraoc 23.0 - [id number] - [id number] Implanted:Qty: 1 on 05/23/2020 by Glenn Falcon MD at OR [facility] Right: Eye [employer] 10/11/2024 [id number] / [id number] / [id number] Lens Intraoc 22.5 - [id number] - [id number] Implanted:Qty: 1 on 06/06/2020 by Glenn Falcon MD at OR [facility] Left: Eye [employer] 12/11/2024 [id number] / [id number] / [id number] documented as of this encounter Advance Directives Documents on File Type Date Recorded Patient Ore Miner Expl anation POLST 11/18/2023 3:49 PM DNR [...] the patient have Health Care Power of Remedial Teacher? Yes, not currently available Care Teams Justice Court Judge Relationship Specialty Start Date End Date Mike Nichols MD [address] [place] [address] PCP - General Family Medicine 10/12/21 documented as of this encounter"
--- OUTSIDE RECORDS SUMMARY | 2024-03-23 08:51 | External Medical Summary | Summary of Care ---
Author Name Unknown Organization [facility] Address [address] [facility] [place] [address] Phone [phone] Care Team Providers Care Casing Runner Name Role Phone Mike Nichols MD Primary Care Provider Encounter Details Date Type Department Care Team (Late st Contact Info) Description 02/24/2024 Orders Only [facility] 21 [facility] [place] [address] Mike Nichols MD 21 [place] [address] Allergies No known active allergiesdocumented as of this encounter (statuses as of 02/24/2024) Medications Medication Sig Dispensed Refills Start Date [...] as of this encounter (statuses as of 02/24/2024) Active Problems Problem Noted Date Diagnosed Date [...] 01/17/2021 07:11 AM LDL CHOLESTEROL (CALCULATED) - [facility] 89 09/14/2019 07:43 AM LDL CHOLESTEROL (DIRECT MEASURE) - [facility] NOT APPLICABLE 09/14/2019 07:43 AM 08/19/2019 calling [...] as of this encounter (statuses as of 02/24/2024) Resolved Problems Problem Noted Date Diagnosed Date [...] 12/31/2006 Overview: [place]/13/2005 [place] [facility] on 08/16/[address] chandler [...] as of this encounter (statuses as of 02/24/2024) Immunizations Name Administration Dates Next Due COVID-19 [...] No 02/10/2024 Does the household have a [facility] hospit[facility] source of income? (Household - for [...] Description 03/01/2024 2:30 PM EDT Home Visit [facility] at [facility] [address] [place] [address] Heather Gibbs, RN [address] [place] [address] 03/04/2024 2:00 PM EDT Office Visit Orthopaedics, [address], [place] [address] [place] [address] [place] [address] Enoch Crabtree PA-C [address] [place] [address] 03/10/2024 3:00 PM EDT Office Visit Cardiology, [place] [facility] [place] [address] Morelia Garsia CRNP 400 [facility] [place] [address] 09/06/2024 6:00 PM EST Office Visit Family Practice, [place] [address] [place] [phone] Mike Nichols MD 21 [facility] [place] [address] Health Maintenance Due Date Last Done Comments Zoster Vaccines (2 of 3) 02/17/2013 12/23/2012 Adult Wellness Visit 09/20/2021 09/20/2020 DTaP,Tdap,and Td Vaccines (2 - Td or Tdap) 12/23/2022 12/23/2012, 02/01/2004 COVID-19 Vaccine (3 - 2022- season) 2023 11/25/2020, 11/01/2020 Influenza Vaccine (FLU shot) (#1) 2024 07/30/2023, 04/25/2022, 06/04/2021, Additional history exists Albumin/Creatinine Ratio 10/12/2024 10/12/2021, 08/15 Depression Screening 02/04/2025 02/05/2024 TSH 02/04/2025 02/05/2024, 04/2 11/2023, 11/18/2022, Additional history exists Pneumococcal Vaccine: 65+ [...] this encounter Medical Devices Implanted Type Area Head Girls Golf Coach Device Identifier Shelf Expiration Date Model / Serial / Lot Lens Intraoc 23.0 - [id number] - [id number] Implanted:Qty: 1 on 05/23/2020 by Glenn Falcon MD at OR [facility] [address] Right: Eye BAUSCH & LOMB 10/11/2024 [id number] / [id number] / [id number] Lens Intraoc 22.5 - [id number] - [id number] Implanted:Qty: 1 on 06/06/2020 by Glenn Falcon MD at OR [facility] [address] [address] Left: Eye BAUSCH & LOMB 12/11/2024 [id number] / [id number] / [id number] documented as of this encounter Procedures Procedure Name Priority Date/Time Associated Diagnosis Comments XR CHEST 2 VIEWS Routine 02/23/2024 documented in this encounter Results * XR CHEST 2 VIEWS (02/23/2024) Anatomical Region Laterality Modality Chest Other 02/23/2024 Aditya Hubbard MD RADIOLOGY (RAD G ENERAL) documented in this encounter Advance Directives Documents on File Type Date Recorded Patient Sql Programmer Analyst Expl anation POLST 11/18/2023 3:49 PM [...] the patient have Health Care Power of Shank Stitcher? Yes, not currently available Care Teams Casing Runner Relationship Specialty Start Date End Date Mike Nichols MD [address] [place] [address] PCP - General Family Medicine 10/12/21 documented as of this encounter
--- OUTSIDE RECORDS SUMMARY | 2024-03-23 08:51 | External Medical Summary | Summary of Care ---
Author Name Unknown Organization [facility] Address [address] [facility] [place] [address] Phone [phone] Care Team Providers Care Director Of Kids Name Role Phone Mike Nichols MD Primary Care Provider Encounter Details Date Type Department Care Team (Late st Contact Info) Description 03/04/2024 Population Health External Data Unspecified Department Allergies No known active allergiesdocumented as of this encounter (statuses as of 03/04/2024) Medications Medication Sig Dispensed Refills Start Date [...] as of this encounter (statuses as of 03/04/2024) Active Problems Problem Noted Date Diagnosed Date [...] as of this encounter (statuses as of 03/04/2024) Resolved Problems Problem Noted Date Diagnosed Date [...] 10/03/2003 12/31/2006 Overview: 08/13/2005 [place] [facility] [place] on [...] as of this encounter (statuses as of 03/04/2024) Immunizations Name Administration Dates Next Due COVID-19 mRNA, LNP-s, No Pre serve, 2-Dose Series (Encore Alert) 11/25/2020,11/01/2020 Pneumococcal Conjugate Vacc, 13 Valent (Prevnar) [...] No 02/10/2024 Does the household have a [facility] source of income? (Household - [...] [place] [address] Morelia Garsia CRNP [address] [place] [address] 03/24/2024 9:00 AM EDT Scheduled Telephone [facility], [facility] [address] [place] [address] Coordinator, [facility] [address] [place] [address] 04/15/2024 5:30 PM EDT Home Visit [facility], [facility] [address] [place] [address] Heather Gibbs, CLAUDIO [address] [place] [address] 09/06/2024 6:00 PM EST Office Visit [facility] [address] [place] [phone] Mike Nichols MD [address] [facility] [place] [address] Health Maintenance Due Date Last Done Comments [...] this encounter Medical Devices Implanted Type Area Senior Facilities Manager Device Identifier Shelf Expiration Date Model / Serial / Lot Lens Intraoc 23.0 - [id number] - [id number] Implanted:Qty: 1 on 05/23/2020 by Glenn Falcon MD at OR [facility] Right: Eye BAUSCH & LOMB 10/11/2024 [id number] / [id number] / [id number] Lens Intraoc 22.5 - [id number] - [id number] Implanted:Qty: 1 on 06/06/2020 by Glenn Falcon MD at OR [facility] Left: Eye BAUSCH & LOMB 12/11/2024 [id number] / [id number] / [id number] documented as of this encounter Advance Directives Documents on File Type Date Recorded Patient Fixed Income Portfolio Manager Expl anation POLST 11/18/2023 3:49 PM DNR [...] the patient have Health Care Power of Bull Ladle Tender? Yes, not currently available Care Teams Director Of Kids Relationship Specialty Start Date End Date Mike Nichols MD 21 [place] [address] PCP - General Family Medicine 10/12/21 documented as of this encounter
--- OUTSIDE RECORDS SUMMARY | 2024-03-23 08:51 | External Medical Summary | Summary of Care ---
Author Name Unknown Organization [facility] Address [address] [facility] [place] [address] Phone [phone] Care Team Providers Care Franchise Sales Manager Name Role Phone Mike Nichols MD Primary Care Provider Encounter Details Date Type Department Care Team (Late st Contact Info) Description 03/02/2024 Population Health External Data Unspecified Department Allergies No known active allergiesdocumented as of this encounter (statuses as of 03/02/2024) Medications Medication Sig Dispensed Refills Start Date [...] as of this encounter (statuses as of 03/02/2024) Active Problems Problem Noted Date Diagnosed Date [...] as of this encounter (statuses as of 03/02/2024) Resolved Problems Problem Noted Date Diagnosed Date [...] RET 10/03/2003 12/31/2006 Overview: 08/13/2005 scheduled in [facility] for surgery on 08/16/[address] chandler [...] as of this encounter (statuses as of 03/02/2024) Immunizations Name Administration Dates Next Due COVID-19 mRNA, LNP-s, No Pre serve, 2-Dose Series (Vello App) 11/25/2020,11/01/2020 Pneumococcal Conjugate Vacc, 13 Valent (Prevnar) [...] No 02/10/2024 Does the household have a [facility] source of income? (Household - [...] [place] [address] Morelia Garsia CRNP [address] [place] [address] 03/24/2024 9:00 AM EDT Scheduled Telephone [facility], [facility] [address] [place] [address] Coordinator, [facility] [address] [place] [address] 04/15/2024 5:30 PM EDT Home Visit [facility], [facility] [address] [place] [address] Heather Gibbs, CLAUDIO [address] [place] [address] 09/06/2024 6:00 PM EST Office Visit [facility] [address] [place] [phone] Mike Nichols MD [address] [facility] [place] [address] Health Maintenance Due Date Last Done Comments [...] this encounter Medical Devices Implanted Type Area Mangle Press Catcher Device Identifier Shelf Expiration Date Model / Serial / Lot Lens Intraoc 23.0 - [id number] - [id number] Implanted:Qty: 1 on 05/23/2020 by Glenn Falcon MD at OR [facility] Right: Eye BAUSCH & LOMB 10/11/2024 [id number] / [id number] / [id number] Lens Intraoc 22.5 - [id number] - [id number] Implanted:Qty: 1 on 06/06/2020 by Glenn Falcon MD at OR [facility] Left: Eye BAUSCH & LOMB 12/11/2024 [id number] / [id number] / [id number] documented as of this encounter Advance Directives Documents on File Type Date Recorded Patient Human Geography Faculty Member Expl anation POLST 11/18/2023 3:49 PM DNR [...] the patient have Health Care Power of Equipment Analyst? Yes, not currently available Care Teams Franchise Sales Manager Relationship Specialty Start Date End Date Mike Nichols MD [address] [place] [address] PCP - General Family Medicine 10/12/21 documented as of this encounter
--- OUTSIDE RECORDS SUMMARY | 2024-03-23 08:51 | External Medical Summary | Summary of Care ---
Author Name Unknown Organization [facility] Address [address] [facility] [place] [address] Phone [phone] Care Team Providers Care Branch Customer Service Representative Name Role Phone Mike Nichols MD Primary Care Provider Encounter Details Date Type Department Care Team (Late st Contact Info) Description 02/26/2024 Population Health External Data Unspecified Department Allergies No known active allergiesdocumented as of this encounter (statuses as of 02/26/2024) Medications Medication Sig Dispensed Refills Start Date [...] as of this encounter (statuses as of 02/26/2024) Active Problems Problem Noted Date Diagnosed Date [...] as of this encounter (statuses as of 02/26/2024) Resolved Problems Problem Noted Date Diagnosed Date [...] RET 10/03/2003 12/31/2006 Overview: 08/13/2005 [facility] [place] on 08/16/05 [...] as of this encounter (statuses as of 02/26/2024) Immunizations Name Administration Dates Next Due COVID-19 mRNA, LNP-s, No Pre serve, 2-Dose Series (Bujbu) 11/25/2020,11/01/2020 Pneumococcal Conjugate Vacc, 13 Valent (Prevnar) [...] No 02/10/2024 Does the household have a [facility] source of income? (Household - for [...] Description 03/01/2024 2:30 PM EDT Home Visit [facility] [address] [place] [address] Heather Gibbs, RN [address] [place] [address] 03/04/2024 2:00 PM EDT Office Visit Orthopaedics, [address], [place] [address] [place] [address] [place] [address] Enoch Crabtree PA-C [address] [place] [address] 03/10/2024 3:00 PM EDT Office Visit Cardiology, [place] [address] [place] [address] Morelia Garsia, JULIETTE [address] [place] [address] 09/06/2024 6:00 PM EST Office Visit Family Practice, [place] [address] [place] [phone] Mike Nichols MD [address] [place] [address] Health Maintenance Due Date Last Done Comments [...] this encounter Medical Devices Implanted Type Area Joggle Press Operator Device Identifier Shelf Expiration Date Model / Serial / Lot Lens Intraoc 23.0 - [id number] - [id number] Implanted:Qty: 1 on 05/23/2020 by Glenn Falcon MD at OR [facility] Right: Eye BAUSCH & LOMB 10/11/2024 [id number] / [id number] / [id number] Lens Intraoc 22.5 - [id number] - [id number] Implanted:Qty: 1 on 06/06/2020 by Glenn Falcon MD at OR [facility] Left: Eye BAUSCH & LOMB 12/11/2024 [id number] / [id number] / [id number] documented as of this encounter Advance Directives Documents on File Type Date Recorded Patient Front End Manager Expl anation POLST 11/18/2023 3:49 PM [...] the patient have Health Care Power of Camera Tuning Engineer? Yes, not currently available Care Teams Branch Customer Service Representative Relationship Specialty Start Date End Date Mike Nichols MD 21 [place] [address] PCP - General Family Medicine 10/12/21 documented as of this encounter
--- OUTSIDE RECORDS SUMMARY | 2024-03-23 08:52 | External Medical Summary | Summary of Care ---
Author Name Unknown Organization [facility] Address [address] [place] [facility] [place] [address] Phone [phone] Care Team Providers Care Principal Technical Writer Name Role Phone Mike Nichols MD Primary Care Provider Encounter Details Date Type Department Care Team (Late st Contact Info) Description 02/23/2024 Telephone Cardiology, [place] 400 [facility] [place] [address] Morelia Garsia CRNP 400 [facility] [place] [address] Allergies No known active allergiesdocumented as of this encounter (statuses as of 02/23/2024) Medications Medication Sig Dispensed Refills Start Date [...] as of this encounter (statuses as of 02/23/2024) Active Problems Problem Noted Date Diagnosed Date [...] Component Value Date/Time LDL CHOLESTEROL (CALCULATED) - [facility] 102 01/17/2021 07:11 AM LDL CHOLESTEROL (CALCULATED) - [facility] 89 09/14/2019 07:43 AM LDL CHOLESTEROL (DIRECT MEASURE) - [facility] NOT APPLICABLE 09/14/2019 07:43 AM 08/19/2019 calling [...] as of this encounter (statuses as of 02/23/2024) Resolved Problems Problem Noted Date Diagnosed Date [...] with dr chandler 07/13/[address] Dumnot :added Avodart 0.5 mg to the Flomax. [...] as of this encounter (statuses as of 02/23/2024) Immunizations Name Administration Dates Next Due COVID-19 [...] No 02/10/2024 Does the household have a [facility] source of income? (Household - [...] encounter Miscellaneous Notes * Telephone Encounter - Silva Lopes OSA - 02/23/2024 2:30 PM EDT [facility] faxed over Anesthesia Request for Surgical Optimization form. Form placed on Morelia's desk. documented in this encounter Plan of Treatment Upcoming Encounters Date Type Department Care Team (Late st Contact Info) Description 03/01/2024 2:30 PM EDT [facility] Visit [facility] [place], [facility] [address] [place] [address] Heather Gibbs, CLAUDIO [address] [place] [address] 03/04/2024 2:00 PM EDT Office Visit Orthopaedics, [place] [address] [place] [address] [place] [address] Enoch Crabtree PA-C [address] [place] [address] 03/10/2024 3:00 PM EDT Office Visit Cardiology, [place] [address] [place] [address] Morelia Garsia CRNP [address] [place] [address] 09/06/2024 6:00 PM EST Office Visit Family Practice, [place] [address] [place] [phone] Mike Nichols MD 21 [place] [address] Health Maintenance Due Date Last Done Comments Zoster Vaccines (2 of 3) 02/17/2013 12/23/2012 Adult Wellness Visit 09/20/2021 09/20/2020 DTaP,Tdap,and Td Vaccines (2 - Td or Tdap) 12/23/2022 12/23/2012, 02/01/2004 COVID-19 Vaccine ( season) 2023 11/25/2020, 11/01/2020 Influenza Vaccine (FLU [...] this encounter Medical Devices Implanted Type Area Dean Of Boys Device Identifier Shelf Expiration Date Model / Serial / Lot Lens Intraoc 23.0 - [id number] - [id number] Implanted:Qty: 1 on 05/23/2020 by Glenn Falcon MD at OR [facility] Right: Eye BAUSCH & LOMB 10/11/2024 [id number] / [id number] / [id number] Lens Intraoc 22.5 - [id number] - [id number] Implanted:Qty: 1 on 06/06/2020 by Glenn Falcon MD at OR [facility] Left: Eye BAUSCH & LOMB 12/11/2024 [id number] / [id number] / [id number] documented as of this encounter Advance Directives Documents on File Type Date Recorded Patient Booth Operator Expl anation POLST 11/18/2023 3:49 PM [...] the patient have Health Care Power of Drier Operator Head? Yes, not currently available Care Teams Principal Technical Writer Relationship Specialty Start Date End Date Mike Nichols MD [address] [place] [address] PCP - General Family Medicine 10/12/21 documented as of this encounter
--- OUTSIDE RECORDS SUMMARY | 2024-03-23 08:52 | External Medical Summary | Summary of Care ---
Author Name Unknown Organization [facility] Address [address] [facility] [place] [address] Phone [phone] Care Team Providers Care News Agent Name Role Phone Mike Nichols MD Primary Care Provider Reason for Visit * Reason Onset Date Comments [facility]: Maintenance 02/23/2024 Encounter Details Date Type Department Care Team (Late st Contact Info) Description 02/23/2024 1:15 PM EDT Scheduled Telephone [facility], [facility] [address] [facility] [place] [address] Coordinator, [facility] [address] [facility] [place] [address] Allergies No known active allergiesdocumented as of [...] 07:43 AM LDL CHOLESTEROL (DIRECT MEASURE) - [facility] NOT APPLICABLE 09/14/2019 07:43 AM 08/19/2019 calling [...] of 37.0 to 37.9 in adult 10/12/2021 Wheezing 08/28/2017 09/03/2017 EKG abnormality 04/20/2014 09/15/2018 [...] 10/03/2003 12/31/2006 Overview: 08/13/2005 scheduled in [facility] [place] for surgery on 08/16/[address] chandler [...] encounter Miscellaneous Notes * Telephone Encounter - Lisa Da Silva RN - 02/23/2024 11:25 AM EDT [facility] ED Follow Up Patient Overview: Patient Name: Marcellus Girard [facility]charging [facility]: [facility] Current [facility] Status: Currently Enrolled - Focused Care Management Outpatient Risk of Hospital Admission and ED Visit: 10 % ED Clinical Background: ED Discharge Diagnosis: Other: Vertigo Objective Data 02/22/2024 12:00 PM 02/22/2024 11:00 AM 02/22/2024 10:30 AM 02/22/2024 10:00 AM 02/22/2024 9:30 AM VITALS ACROSS ENCOUNTERS BP 156/92 133/94 148/97 134/85 133/95 Pulse 108 97 92 85 98 Disposition Overview: Remote Patient Monitoring Given: NO Remote Patient Monitoring Oxygen Requirements: NO supplemental oxygen needs identified with status of: NO DME needs identified DME Needs: NO DME needs identified with status of: NO DME needs identified Medication Review: New medication(s) added: meclizine 25 mg TID prn Current Concerns: Spoke with pt's who reports pt has been doing well since the ED, hasn't had any recurrence of vertigo. Picked up rx for meclizine (4 tabs total) but hasn't needed to take any yet. Encouraged to call [facility] with new or worsening symptoms. Scheduled follow-up includes: ED to Home follow up complete with appropriate follow up scheduled. Future Visits Scheduled: Future Appointments-next 60 days Date/Time Provider Specialty Dept Phone 02/23/2024 1:15 PM CoordinatorTitus [facility] [phone] 03/01/2024 2:30 PM Heather Gibbs RN [facility] [phone] 03/04/2024 2:00 PM (Arrive by 1:45 PM) Enoch Crabtree PA-C Orthopedics [phone] 03/10/2024 3:00 PM (Arrive by 2:45 PM) Morelia Garsia CRNP Cardiology [phone] 09/06/2024 6:00 PM (Arrive by 5:45 PM) Mike Nichols MD Family Medicine [phone] Lisa Da Silva, RN documented in this encounter Plan of Treatment Upcoming Encounters Date Type Department Care Team (Late st Contact Info) Description 03/01/2024 2:30 PM EDT [facility] Visit [facility] [place] [address] Heather Gibbs, CLAUDIO [address] [place] [address] 03/04/2024 2:00 PM EDT Office [place] [address] [place] [address] [place] [address] Enoch Crabtree PA-C [address] [place] [address] 03/10/2024 3:00 PM EDT Office Visit Cardiology, [place] [address] [place] [address] Morelia Garsia CRNP [address] [place] [address] 09/06/2024 6:00 PM EST Office Visit Family Practice, [place] [address] [place] [phone] Mike Nichols MD [address] [place] [address] Health Maintenance Due Date Last Done Comments Zoster Vaccines (2 of 3) 02/17/2013 12/23/2012 Adult Wellness Visit 09/20/2021 09/20/2020 DTaP,Tdap,and Td Vaccines (2 - Td or Tdap) 12/23/2022 12/23/2012, 02/01/2004 COVID-19 Vaccine (3 - 2023-24 season) 2023 11/25/2020, 11/01/2020 Influenza Vaccine (FLU [...] this encounter Medical Devices Implanted Type Area Casino Investigator Device Identifier Shelf Expiration Date Model / Serial / Lot Lens Intraoc 23.0 - [id number] - [id number] Implanted:Qty: 1 on 05/23/2020 by Glenn Falcon MD at OR [facility] Right: Eye BAUSCH & LOMB 10/11/2024 [id number] / [id number] / [id number] Lens Intraoc 22.5 - [id number] - [id number] Implanted:Qty: 1 on 06/06/2020 by Glenn Falcon MD at OR [facility] Left: Eye BAUSCH & LOMB 12/11/2024 [id number] / [id number] / [id number] documented as of this encounter Advance Directives Documents on File Type Date Recorded Patient 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 Yes, not currently available Care Teams News Agent Relationship Specialty Start Date End Date Mike Nichols MD [address] [place] [phone] PCP - General Family Medicine 10/12/21 documented as of this encounter
--- OUTSIDE RECORDS SUMMARY | 2024-03-23 08:52 | External Medical Summary | Summary of Care ---
Author Name Unknown Organization [facility] Address [address] [facility] [place] [address] Phone [phone] Care Team Providers Care Wholesale Agronomist Name Role Phone Mike Nichols MD Primary Care Provider Encounter Details Date Type Department Care Team (Late st Contact Info) Description 02/24/2024 Population Health External Data Unspecified Department Allergies [...] 10/03/2003 12/31/2006 Overview: 08/13/2005 scheduled in [facility] for surgery on 08/16/[address] chandler [...] mRNA, LNP-s, No Pre serve, 2-Dose Series (Transparency Software) 11/25/2020,11/01/2020 Pneumococcal Conjugate Vacc, 13 Valent (Prevnar) [...] No 02/10/2024 Does the household have a [facility] source of income? (Household - [...] PM EDT Home Visit [facility] [address] [address] Heather Gibbs, RN [address] [address] 03/04/2024 2:00 PM EDT Office Visit Orthopaedics, [address], [place] [address] [place] [address] [place] [place] [address] Enoch Crabtree PA-C [address] [place] [address] 03/10/2024 3:00 PM EDT Office Visit Cardiology, [place] [address] [place] [address] Morelia Garsia, JULIETTE [address] [place] [address] 09/06/2024 6:00 PM EST Office Visit Family Practice, [place] [address] [place] [phone] Mike Nichols MD [address] [place] [address] Health Maintenance Due Date Last Done Comments [...] this encounter Medical Devices Implanted Type Area Radiation Officer Device Identifier Shelf Expiration Date Model / Serial / Lot Lens Intraoc 23.0 - [id number] - [id number] Implanted:Qty: 1 on 05/23/2020 by Glenn Falcon MD at OR [facility] Right: Eye [employer] 10/11/2024 [id number] / [id number] / [id number] Lens Intraoc 22.5 - [id number] - [id number] Implanted:Qty: 1 on 06/06/2020 by Glenn Falcon MD at OR [facility] Left: Eye [employer]OM[employer] 12/11/2024 [id number] / [id number] / [id number] documented as of this encounter Advance Directives Documents on File Type Date Recorded Patient Museum Guide Expl anation POLST 11/18/2023 3:49 PM DNR [...] the patient have Health Care Power of Inspector Air Carrier? Yes, not currently available Care Teams Wholesale Agronomist Relationship Specialty Start Date End Date Mike Nichols MD [address] [address] PCP - General Family Medicine 10/12/21 documented as of this encounter
--- NOTE | 2024-03-23 08:57 | History & Physical Bridge Note ---
Date of Service March 23, 2024 History & Physical Bridge Note I have examined the patient, reviewed the History & Physical and in the interval since the performance of the History & Physical I have noted the following changes of clinical significance: no changes noted
[2024-03-23] MEDS: LR 500ML BOLUS, THEN 15ML/HR IV SCH (09:00)
[2024-03-23] MEDS: LR 60ML/HR IV SCH (09:13)
[2024-03-23] MEDS: FAMOTIDINE 20 MG TAB PO SCH (09:14)
[2024-03-23] MEDS: METOCLOPRAMIDE HCL 10 MG TABLET PO SCH (09:14)
[2024-03-23] MEDS: CeleBREX 200 MG CAP PO SCH (09:14)
[2024-03-23] MEDS: ACETAMINOPHEN 500 MG TAB PO SCH ×2 (09:17→15:32)
[2024-03-23] MEDS: dexAMETHasone**PF** 10 MG/ML VIAL IV STA (09:17)
[2024-03-23] MEDS ORDERED: PROPOFOL IV EMULSION 10 MG/ML 20 ML VIAL IV ONE (09:22)
[2024-03-23] MEDS ORDERED: ONDANSETRON INJ 2 MG/ML 2 ML VIAL ONE (09:22)
[2024-03-23] MEDS ORDERED: MIDAZOLAM HCL 1 MG/ML 2ML VIAL ONE (09:22)
[2024-03-23] MEDS ORDERED: HYDROmorphone INJ 1 MG/ML SYRINGE IV PRN (09:48)
[2024-03-23] MEDS ORDERED: fentaNYL citrate PF 100 MCG/2 ML VIAL IV PRN (09:48)
[2024-03-23] MEDS ORDERED: ePHEDrine sulfate 50 MG/ML AMP IV PRN (09:48)
[2024-03-23] MEDS ORDERED: ATROPINE SULFATE 0.1 MG/ML 10ML SYR IV PRN (09:48)
[2024-03-23] MEDS ORDERED: ONDANSETRON INJ 2 MG/ML 2 ML VIAL IV PRN ×2 (09:48→14:00)
[2024-03-23] MEDS: ceFAZolin 2000MG 2,000 MG/15 ML SYR IV SCH ×2 (11:01→18:00)
[2024-03-23] MEDS ORDERED: fentaNYL citrate PF 100 MCG/2 ML VIAL ONE (11:11)
[2024-03-23] MEDS ORDERED: PHENYLEPHRINE 100MCG/ML 10ML SYR IV ONE (11:26)
[2024-03-23] MEDS ORDERED: ePHEDrine sulfate 50 MG/ML AMP ONE ×2 (11:26→12:23)
[2024-03-23] MEDS: ROPIV 0.5% 246mg, Ketorolac 30mg, EPINEPHrine 0.5mg in NSS INFIL SCH (11:50)
[2024-03-23] MEDS: VANCOMYCIN HCL 1000MG/20ML VIAL ONE ×2 (11:50→11:57)
[2024-03-23] MEDS: ORTHO JOINT ANESTHETIC ONE (11:50)
[2024-03-23] MEDS: TRANEXAMIC ACID 1,000 MG **IV Intra-op IV SCH (12:04)
[2024-03-23] MEDS ORDERED: PHENYLEPHRINE HCL 10 MG/ML VIAL ONE (12:28)
--- NOTE | 2024-03-23 13:03 | Operative Report ---
PG Post Operative Report Pre & Post Diagnosis Operation Date: 03/23/24 10:40 Pre-Op Diagnosis: Right Knee Degenerative Joint Disease Post-Op Diagnosis: Right Knee Degenerative Joint Disease I identified the patient and participated in the time-out.: Yes Procedure Operation Date: 03/23/24 10:40 Actual Procedures p Right Total Knee Arthroplasty(Right) - Aditya Hubbard MD Surgeon Aditya Hubbard MD Medical Assembler Venkata Jc PA-C Estimated Blood Loss 50 Findings Consistent with Post-Op Diagnosis Operative findings were advanced right knee DJD. He had pretty extensive grade 4 [id number] disease in all 3 compartments. Large knee joint effusion. Significant chondrocalcinosis. Specimens Right knee sent for pathology. Complications none Disposition Accompanied Patient To Recovery: No Indications Patient is an 88-year-old gentleman whose had a long history of knee and leg problems. He had a history of osteomyelitis of the fibula and is much younger years. He was treated for this and had no signs of recurrence over the past 50 years. He has developed progressive knee pain discomfort failing conservative care. X-rays reveal advanced right knee DJD and chondrocalcinosis. The was required a cane for ambulation. He failed conservative measures. He elected proceed with total knee arthroplasty. He did have an infectious workup and there was no signs of residual bone infection. Description of Procedure Operative implants consist of: 1 Biomet Vanguard size 67.5 right posterior stabilized femoral component. 2. Biomet size 75 tibial tray. 3. 10 mm posterior stabilized polyethylene insert. 4. 34 x 8 and half all poly patella. The patient was taken to the op room, identified, placed on the operating table in the supine position. All contact areas were appropriately padded. IV antibiotics tried by anesthesia team. A general anesthetic was employed by anesthesia team. Right Tetrick was then placed. The right lower extremity was then prepped and draped in usual sterile fashion. The right leg was elevated and exsanguinated with use of an Esmarch and a turn was placed at 300 mmHg. An anterior approach to the right knee was then performed to longitudinal incision centered over the patella. Sharp dissection was Through subcutaneous tissue down the extensor mechanism. A medial parapatellar arthrotomy incision was made. Some subperiosteal dissection was carried out medially. The fat pad was resected from beneath the patella tendon. The lateral patellofemoral ligament was released. Patella subluxated laterally and the knee was flexed. The osteophytes were taken off distal femur. The ACL and PCL were then released from distal femur the tibia subluxated anteriorly. The external tibial alignment jig was then placed on the anterior face the tibia and adjusted 14 mm medially. Proximal tibial cut was made remove about a millimeter or 2 of bone from the medial side. The tibia sized to a size 75. We tried to maximize coverage due to the osteopenia. Attention drawn the femur. The distal femur stem with a sharp drill. Intramedullary canal was suction. A right 6 degree valgus cutting guide was placed. The distal femoral cutting bloc k was pinned in place. Distal femoral cut was made to take an additional 3 mm bone off distal femur. The femur was then sized to a size 67.5. The AP cutting block was pinned parallel to the epicondylar axis which was 4 degrees of external rotation. The anterior cut, anterior chamfer, posterior cut, posterior chamfer cuts were made. The box cutting guide was placed in the just slight lateral and the box cut was made. The knee was flexed. The remnants of the medial and lateral menisci were excised with the osteophytes taken off the posterior aspect of femur. A trial femoral component was placed. The tibial tray was pinned Briseida external rotation and the drill and stem punch were used to create defect in the proximal tibia for the tibial tray. Knee was then trialed and the 10 mm insert fit most appropriately. Attention drawn the patella. The patella was cleaned of all soft tissues. Patella thickness measured 21 mm in thickness was cut down to 14. Was sized to a size 34 patella. The lug holes were drilled for 34 patella. The lateral osteophytes removed. Patella button was placed. Knee was taken through range of motion patella tracked nicely with no thumbs test. Attention drawn to placing permanent components. Nupathe all trial components were removed. Bone plug was placed in the distal femur limit blood loss. A double batch Palacos G cement was mixed. I did add an additional 2 g of vancomycin due to this history of infection years ago. A Biomet Projjixguard size 67.5 right posterior Byce femoral component, size 75 tibial tray, a 10 mm posterior Byce polyethylene insert, and a 34 x 8 and half all poly patella then cemented in place. The knee was brought out into full extension till cement hardened. Final cement check was then performed. Pericapsular tissues were injected with total of 100 cc of Ortho mix. Patient did receive 1 g tranexamic acid. The tourniquet was then let down for final tourniquet time 58 minutes. Hemostasis assured use electrocautery. Extensor Meclomen closed with combination 1 PDS suture #1 Vicryl suture in [id number] fashion. Extensor Meclomen checked found to be intact in the subcutaneous tissues then closed with 2 Dexon suture in a buried interrupted fashion skin was closed skin danielle. Leg was then cleaned and dried and sterile dressing with Xeroform, 4 fours, sterile cast padding, Nate bandage were applied. The patient then transferred to the recovery in stable condition. Patient tolerated the procedure well and there are no complications. Venkata Jc, my physician licensed sales assistant, was present for the entire procedure. His assistance was essential and required for appropriate patient positioning, prepping and draping, surgical exposure, performing the technical details of the operation, placement the implants, closure of the wound, and placement of the sterile bandage. I attest to the content of the Intraoperative Record and any orders documented therein. Any exceptions are noted below.
--- NOTE | 2024-03-23 13:55 | Anesthesiology Progress Note ---
Date of Service March 23, 2024 Anesthesia Post Procedure Vital Signs Vital Signs: Temp Pulse Pulse Resp BP Pulse Ox O2 Del Method 03/23/24 13:30 110 H 17 117/67 96 Oxymask 03/23/24 13:20 104 H 16 119/75 97 Oxymask 03/23/24 13:10 101 H 16 103/65 95 Oxymask 03/23/24 13:00 102 H 15 90/58 L 95 Oxymask 03/23/24 12:51 36.2 C L 95 H 16 98/68 L 95 Oxymask 03/23/24 08:59 36.5 C 111 H 20 132/88 96 Room Air O2 Flow Rate 03/23/24 13:30 2 03/23/24 13:20 4 03/23/24 13:10 4 03/23/24 13:00 5 03/23/24 12:51 5 03/23/24 08:59 Pain Intensity Right Knee: Pain Intensity: 6 Transfer of Care Handoff Completed per policy Notes Mental Status: alert / awake / arousable Patient Amnestic to Procedure: Yes Nausea / Vomiting: adequately controlled Pain: adequately controlled Airway Patency, RR, SpO2: stable & adequate BP & HR: stable & adequate Hydration State: stable & adequate Anesthetic Complications: no major complications apparent and Pt Satisfied with anesthetic care
[2024-03-23] MEDS ORDERED: MAGNESIUM HYDROXIDE SUSP 30 ML UDC PO PRN (14:00)
[2024-03-23] MEDS ORDERED: bisacodyL 10 MG SUPP PR PRN (14:00)
[2024-03-23] MEDS ORDERED: METOCLOPRAMIDE HCL INJ 5 MG/ML 2 ML VIAL IV PRN (14:00)
[2024-03-23] MEDS ORDERED: ALUMINUM/MAGNESIUM SUSP 30 ML UDC PO PRN (14:00)
[2024-03-23] MEDS ORDERED: HYDROmorphone INJ 0.5 MG/0.5 ML SYR IV PRN (14:00)
[2024-03-23] MEDS ORDERED: NALOXONE HCL 0.4 MG/1 ML VIAL/CARP IV PRN (14:00)
--- NOTE | 2024-03-23 14:02 | XRay Report ---
RIGHT KNEE 2 VIEWS History: Right total knee arthroplasty. Degenerative arthritis. Postop. FINDINGS: The patient is status post a right total knee arthroplasty. The hardware is intact. No frac ture or dislocation. Skin danielle are in place. Partial fibular absence again noted. IMPRESSION: Right total knee arthroplasty. No evidence for hardware complication. ACT 112: Negative or not required by law. Electronically signed by: Christopher Landa M.D. 03/23/2024 2:01 PM
[2024-03-23] MEDS: METOPROLOL TARTRATE 1 MG/ML VIAL IV STA (14:10)
[2024-03-23] MEDS: SODIUM CHLORIDE 0.9% 1,000 ML IV SCH (14:17)
[2024-03-23] MEDS: METOPROLOL SUCC 50MG EXT REL TAB PO SCH (15:31)
[2024-03-23] MEDS: KETOROLAC TROMETHAMINE 15 MG/ML VIAL IV SCH (15:32)
[2024-03-23] MEDS: POTASSIUM CHLORIDE CRTAB 20 MEQ TABCR PO SCH (15:32)
[2024-03-23] MEDS: ASCORBIC ACID 500 MG TAB PO SCH (17:40)
[2024-03-23] MEDS: TRANEXAMIC ACID / 0.7% NACL 1,000 MG/100 ML BAG IV SCH (18:00)
[2024-03-23] MEDS: DOCUSATE SODIUM 100 MG CAP PO SCH (20:27)
[2024-03-23] MEDS: SIMVASTATIN 10 MG TAB PO SCH (20:27)
[2024-03-23] MEDS: SENNA 8.6 MG TAB PO SCH ×2 (20:27)
[2024-03-24] MEDS: LEVOTHYROXINE SODIUM 25 MCG TABLET PO SCH (05:49)
[2024-03-24 06:12] LABS: Hematocrit (blood only) 41.6 % (42.0-52.0); Hemoglobin 14.5 g/dl (14.0-18.0); Mean Corpuscular Hgb Conc 34.9 g/dL (32.0-36.0); Mean Corpuscular Volume 91.8 fL (80.0-100.0); Mean Platelet Volume 9.8 fL (9.4-12.4); Platelet Count 207 K/uL (130-400); RDW Coefficient of Variation 13.4 % (11.5-14.5); RDW Standard Deviation 45.8 fL (36.4-46.3); Red Blood Count 4.53 M/uL (4.70-6.10); White Blood Count 15.19 K/ul (4.8-10.8)
[2024-03-24 06:26] LABS: BUN Creatinine Ratio 21.6 (10-20); Calcium 8.8 mg/dl (8.6-10.3); Creatinine Clr Calc Pharmacy 64.4 ml/min; Est GFR (African American) 79.9 ml/min; Est GFR (Non-African American) 68.9 ml/min; Potassium 5.1 mmol/L (3.5-5.1)
[2024-03-24] MEDS: CHOLECALCIFEROL 25 MCG (1000 UNITS) TAB PO SCH (07:52)
[2024-03-24] MEDS: lisinopril 20 MG TAB PO SCH (07:52)
[2024-03-24] MEDS: TAMSULOSIN HCL 0.4 MG CAP PO SCH (07:52)
[2024-03-24] MEDS: dexAMETHasone 10 MG in SYRINGE 0 ML IV SCH (07:52)
[2024-03-24] MEDS: MULTIVITAMIN TAB PO SCH (07:53)
[2024-03-24] MEDS: FUROSEMIDE 40 MG TAB PO SCH (07:53)
[2024-03-24] MEDS: amLODIPine BESYLATE 5 MG TAB PO SCH (07:57)
--- NOTE | 2024-03-24 11:01 | Orthopedic Progress Note ---
Date of Service March 24, 2024 Assessment & Plan (1) Status post right knee replacement: Plan: 88-year-old gentleman with multiple medical comorbidities postop day 1 from right knee replacement doing quite well. His pain is controlled. He is neurologically intact. He appears medically stable. Has had some intermittent mild tachycardia and we will make sure we get him back on his metoprolol at appropriate dose. Plan: 1. DVT prophylaxis including thigh-high teds, SCDs, back on his Eliquis at prophylactic dose today. 2. PT/OT. Weight-bear. Right total knee protocol. 3. Pain control doing well with current pain regimen. 4. Disposition his family is hoping that he will go to a rehab or senior living facility. Were looking into that. He appears pretty medically stable currently. Admission and Anticipated Discharge Date Admission Date: March 23, 2024 Subjective 88-year-old gentleman postop day 1 from right knee replacement. He is doing pretty well. Pains been controlled. Had a pretty good night. No chest pain or shortness of breath. Not feeling dizzy or lightheaded. Physical Exam Physical Exam: Physical exam shows a pleasant elderly male. Sitting up in bed talking to the therapist looks pretty comfortable. Examination of the right leg reveals the dressing be clean dry and intact he can dorsiflex and plantarflex his foot appropriately. He is neurologically intact. Respiratory: normal respiratory effort, lungs clear to auscultation Cardiovascular: RRR, no murmur, no edema Gastrointestinal (Abdomen): normal bowel sounds, soft, nontender, no hepatosplenomegaly Results & Data Vital Signs (Past 12 Hours) Vital Signs Temp Pulse Resp BP Pulse Ox O2 Del Method 03/24/24 07:15 36.4 C L 104 H 18 144/72 H 96 Room Air 03/24/24 02:41 36.4 C L 97 H 16 150/98 H 97 Room Air 03/23/24 23:41 36.9 C 100 H 18 121/78 96 Room Air Laboratory Results Hemoglobin is 14.5. Hematocrit 41.6. Electrolytes are stable.
[2024-03-24] MEDS: APIXABAN 2.5 MG TAB PO SCH (12:47)
--- NOTE | 2024-03-25 07:11 | Orthopedic Progress Note ---
Date of Service March 25, 2024 Assessment & Plan (1) Status post right knee replacement: Plan: 88-year-old gentleman with multiple medical comorbidities postop day 2 from right knee replacement doing remarkably well. Pains controlled. He is neurologically intact. He is hoping to go to [place]. Plan: 1. DVT prophylaxis including thigh-high teds, SCDs, back on his Eliquis. 2. PT/OT. He can weight-bear as tolerated. Right total knee protocol. 3. Pain control doing okay with current pain regimen. 4. Disposition. Were hoping to get him to [place] today. He is orthopedically stable. Admission and Anticipated Discharge Date Admission Date: March 23, 2024 Subjective 88-year-old gentleman postop day 2 from a right knee replacement. He has done quite well. Pains controlled. No chest pain or shortness of breath. Not feeling dizzy or lightheaded. He is hoping to go to [place] for a short rehab stay. This is his family's preference as well. Physical Exam Physical Exam: Physical nation is a pleasant elderly male. He is lying in bed looks pretty comfortable this morning. Examination of the right leg reveals the dressing be clean dry and intact. He can dorsiflex and plantarflex his foot appropriately. He is neurologically intact. Respiratory: normal respiratory effort, lungs clear to auscultation Cardiovascular: RRR, no murmur, no edema Gastrointestinal (Abdomen): normal bowel sounds, soft, nontender, no hepatosplenomegaly Results & Data Vital Signs (Past 12 Hours) Vital Signs Temp Pulse Resp BP Pulse Ox O2 Del Method 03/24/24 19:32 36.5 C 108 H 18 137/84 96 Room Air
[2024-03-25] MEDS: oxyCODONE HCL IR 5 MG TAB (IMMEDIATE RELEASE) PO PRN (07:40)
[2024-03-28] MEDS ORDERED: LEVOTHYROXINE SODIUM 50 MCG TABLET PO SCH (06:30)
--- NOTE | 2024-03-29 15:17 | Discharge Summary ---
Date of Service March 29, 2024 Discharge Data Procedures Performed Operation Date: 03/23/24 10:40 Actual Procedures p Right Total Knee Arthroplasty(Right) - Aditya Hubbard MD Hospital Course (1) Status post right knee replacement: This is a 88 year old patient admitted on 03/23/24 and underwent total knee arthroplasty. He tolerated the procedure well and there were no complications. Transferred to the PACU post op and later to the orthopedic floor for further care. He was given ancef for antibiotic prophylaxis. He was also given KELLI stockings, SCDs, and eliquis for DVT prophylaxis. Hemoglobin, hematocrit, and vital signs were monitored during his hospital stay and remained stable. he did have some tachycardia. Did not require any blood transfusions. There were no complications during his hospital stay. By post op day #2 the patient was tolerating a regular diet, pain was reasonably controlled with oral pain medicine, and he was participating in physical therapy. On post op day #2 the patient was discharged to a nursing home facility. He was given printed discharge instructions including prescriptions for extra strength tylenol, cefadroxil, zofran senokot, flomax, and oxycodone. Continue physical therapy, weight bearing as tolerated. Continue KELLI stockings. Follow up approximately 2 weeks post op or sooner if there are problems or concerns. Coding Level of Care Code None Diagnoses Status post right knee replacement Z96.651
== END 2024-03-25 12:00 | DRG 470 ==
LOC: ASU 08:11 → 3E 12:56
DX: I48.0 Paroxysmal atrial fibrillation; M11.261 Other chondrocalcinosis, right knee; Z79.899 Other long term (current) drug therapy; I10 Essential (primary) hypertension; E03.9 Hypothyroidism, unspecified; Z79.01 Long term (current) use of anticoagulants; Z87.438 Personal history of other diseases of male genital organs; Z87.39 Personal history of other diseases of the musculoskeletal system and connective tissue; M17.11 Unilateral primary osteoarthritis, right knee; Z79.890 Hormone replacement therapy; E78.5 Hyperlipidemia, unspecified